=== PATIENT | female | born 1950 | race Caucasian/White ===

== ENCOUNTER 2018-05-13 06:15 | Day surgery (SDC) | payer MEDICARE, SELFPAY ==
[2018-05-13 06:42] VITALS: BP 122/63; PULSE 70; RESP 14; TEMP 36.1; O2SAT 97; BMI 31.1
[2018-05-13 08:02] VITALS: BP 122/63; BP 92/54; PULSE 68; RESP 16; TEMP 36.3; O2SAT 97
--- NOTE | 2018-05-13 08:03 | OP.ENDO_ITS ---
Patient Name: Michael Hollingsworth Procedure Date: 05/13/2018 7:34 AM Date of : 1950 Age: 67 Procedure: Colonoscopy Indications: High risk colon cancer surveillance: Personal history of colonic polyps Providers: Herve Calixto MD Medicines: See the Anesthesia note for documentation of the administered medications Patient Profile: Last Colonoscopy: 3 years ago. Complications: No immediate complications. Procedure: Pre-Anesthesia Assessment: - Prior to the procedure, a History and Physical was performed, and patient medications and allergies were reviewed. The patient's tolerance of previous anesthesia was also reviewed. The risks and benefits of the procedure and the sedation options and risks were discussed with the patient. All questions were answered, and informed consent was obtained. Prior Anticoagulants: The patient has taken no previous anticoagulant or antiplatelet agents. ASA Grade Assessment: II - A patient with mild systemic disease. After reviewing the risks and benefits, the patient was deemed in satisfactory condition to undergo the procedure. After I obtained informed consent, the scope was passed under direct vision. Throughout the procedure, the patient's blood pressure, pulse, and oxygen saturations were monitored continuously. The adult colonoscope was introduced through the anus and advanced to the cecum, identified by appendiceal orifice and ileocecal valve. The colonoscopy was performed without difficulty. The patient tolerated the procedure well. The quality of the bowel preparation was good. Scope In: 7:45:44 AM Scope Withdrawal Time 0 hours 6 minutes 30 seconds Scope Out: 7:59:14 AM Total Procedure Duration Time 0 hours 13 minutes 30 seconds Findings: The colon (entire examined portion) appeared normal. Non-bleeding internal hemorrhoids were found during retroflexion. The hemorrhoids were mild and Grade I (internal hemorrhoids that do not prolapse). The exam was otherwise without abnormality. Impression: - The entire examined colon is normal. - Non-bleeding internal hemorrhoids. - The examination was otherwise normal. - No specimens collected. Recommendation: - Discharge patient to home. - Resume previous diet. - Continue present medications. - Repeat colonoscopy in 10 days for screening purposes. - Return to primary care physician PRN. Procedure Code(s): --- Professional --- G0105, Colorectal cancer screening; colonoscopy on individual at high risk Diagnosis Code(s): --- Professional --- Z86.010, Personal history of colonic polyps K64.0, First degree hemorrhoids CPT copyright 2017 [employer] [place] [employer]. All rights reserved. The codes documented in this report are preliminary and upon [employer] review may be revised to meet current compliance requirements. MD Herve Maria MD 05/13/2018 8:02:49 AM This report has been signed electronically. Number of Addenda: 0 Note Initiated On: 05/13/2018 7:34 AM
[2018-05-13 08:05] VITALS: BP 122/63; BP 90/58; PULSE 65; RESP 16; O2SAT 97
[2018-05-13 08:10] VITALS: BP 122/63; BP 94/55; PULSE 65; RESP 16; O2SAT 97
[2018-05-13 08:15] VITALS: BP 105/69; BP 122/63; PULSE 75; RESP 16; TEMP 36.3; O2SAT 100
[2018-05-13 08:44] VITALS: BP 122/63
== END 2018-05-13 08:44 | disposition home or self-care (01) ==
LOC: EN 06:16 → AC 06:18
PROVIDERS: Family Provider Nurse Practitioner Adult Health; PCP Nurse Practitioner Adult Health; Referring Provider Surgery; Visit Provider Surgery
PROC: 0DJD8ZZ Inspection of Lower Intestinal Tract, Via Natural or Artificial Opening Endoscopic (ICD-10-PCS; CPT 45378; principal; 2018-05-13 07:25)
DX: Z86.010 Personal history of colon polyps (principal); K64.0 First degree hemorrhoids; E06.9 Thyroiditis, unspecified; F32.9 Major depressive disorder, single episode, unspecified; F41.9 Anxiety disorder, unspecified; Z87.891 Personal history of nicotine dependence
CPT/HCPCS: G0105; J7120; J1610

== ENCOUNTER → 2018-07-27 07:37 | Outpatient (CLI) | payer MEDICARE, SELFPAY ==
[2018-07-22 13:40] VITALS: BMI 31.1
--- NOTE | 2018-07-27 07:39 | CT_ITS ---
STUDY: CT ABDOMEN AND PELVIS WITH CONTRAST REASON FOR EXAM: Female, 67 years old. Without tearing-like feelings 4 weeks ago in the right side. History of appendectomy. RADIATION DOSAGE (If Supplied By Facility): CTDIvol = ( 14.34 ) mGy, DLP = ( 900.46 ) mGycm TECHNIQUE: Transaxial images were obtained from the dome of the diaphragm to the symphysis pubis with oral contrast. 100 ml of Isovue 300 contrast was administered. Sagittal and coronal images were reconstructed. Individualized dose optimization techniques were used for this CT. COMPARISON: None. FINDINGS: The visualized lung bases are unremarkable. The visualized portions of the heart are within normal limits. Normal liver. Normal gallbladder and extrahepatic biliary system. Normal spleen. Normal pancreas. Normal bilateral adrenal glands. Normal right kidney. Ages exophytic cyst off the upper pole. Otherwise normal left kidney. Normal bilateral ureters. Normal visualized stomach. Normal small intestine. Normal colon. There is non-visualization of the appendix. Normal abdominal aorta. Normal inferior vena cava. Normal retroperitoneum. Normal urinary bladder. The uterus and ovaries. There is no pelvic lymphadenopathy. No free air or free fluid is seen within the peritoneal cavity. Normal abdominal wall. There are diffuse degenerative changes of the visualized lumbar spine. CT/Abdomen/Pelvis WITH Contrast IMPRESSION: 1. No evidence of acute intra-abdominal or pelvic abnormality. 2. Left renal cyst. 3. Degenerative changes of the lumbar spine. Electronically Signed: Gray Thapa DO at 22:37 EST Tel [phone], Service support ,
[2018-07-27 07:55] LABS: CREATININE FINGERSTICK 0.9 mg/dL (0.55-1.02); EGFR FINGERSTICK > 60.0000 mL/min (>60)
== END ==
PROVIDERS: Family Provider Nurse Practitioner Adult Health; PCP Nurse Practitioner Adult Health; Referring Provider Physician Assistant; Visit Provider Physician Assistant
DX: R10.9 Unspecified abdominal pain (principal)
CPT/HCPCS: 74177; Q9967

== ENCOUNTER → 2019-02-10 08:06 | Outpatient (CLI) | payer MEDICARE, SELFPAY ==
[2019-02-04 17:31] VITALS: BMI 29.7
--- NOTE | 2019-02-10 08:18 | BD_ITS ---
STUDY: DUAL ENERGY X-RAY ABSORPTIOMETRY / DXA REASON FOR EXAM: Female, 68 years old. The patient is postmenopausal. No loss of height. TECHNIQUE: Bone Mineral Density (BMD) measurements of lumbar spine and bilateral hips were obtained. COMPARISON: None. FINDINGS: Lumbar Spine (L1-L4): g/cm2 (1.062) / T-score (-0.9) / Z-score (0.7) Findings are suggestive of normal bone density with a low fracture risk. Left Femur Total: g/cm2 (0.990) / T-score (-0.1) / Z-score (1.1) Left Femoral Neck: g/cm2 (1.054) / T-score (0.1) / Z-score (1.6) Right Femur Total: g/cm2 (0.975) / T-score (-0.3) / Z-score (1.0) Right Femoral Neck: g/cm2 (1.165) / T-score (0.9) / Z-score (2.4) BD/Dexa Bone Density Study IMPRESSION: The patient is considered normal as outlined below according to World Chris Organization (WHO) criteria with a low fracture risk. Reference Information: The T-score is the number of standard deviations above or below the standard which is normal for young adults at their peak bone mineral density. The World Health Organization (WHO) interprets the T-scores as follows: Above -1 Normal bone density Between -1 and -2.5 Osteopenia Equal to / or below -2.5 Osteoporosis As a practical clinical guideline, osteopenia may be graded as follows: Mild -1 through -1.5 Moderate -1.6 through -2.0 Severe -2.1 through -2.4 The Z-score is the number of standard deviations above or below age-matched controls. A Z-score of less than -1.5 would be considered abnormal. References: 1. NIH Osteoporosis and Related Bone Diseases http://www.osteo.org 2. International Society for Clinical Densitometry http://www.iscd.org 3. National Osteoporosis Foundation http://www.nof.org Electronically Signed: Jose Davidson, at 15:55 EDT , Service support ,
--- NOTE | 2019-02-10 08:40 | RAD_ITS ---
STUDY: X-RAY CHEST REASON FOR EXAM: Female, 68 years old. Cough TECHNIQUE: Single AP portable view of the chest. COMPARISON: 02/19/2016 FINDINGS: The lungs are clear and expanded. There is no demonstrated pleural abnormality. Normal size heart. Normal mediastinum and ariana. Normal visualized pulmonary arteries. Normal visualized aortic arch and descending thoracic aorta. Mild S-shaped scoliosis of the thoracolumbar spine. Normal visualized ribs, clavicles, and shoulders. There is no demonstrated abnormality of the visualized soft tissue structures of the upper abdomen. RAD/Chest 1 View IMPRESSION: Normal x-ray examination of the chest. Electronically Signed: Kavin Varma MD at 8:58 EDT Tel , Service support ,
== END ==
PROVIDERS: Family Provider Internal Medicine; PCP Internal Medicine; Referring Provider Internal Medicine; Visit Provider Internal Medicine
DX: Z78.0 Asymptomatic menopausal state (principal); R05 Cough
CPT/HCPCS: 71045; 77080

== ENCOUNTER → 2019-08-24 16:11 | Outpatient (CLI) | payer MEDICARE, SELFPAY ==
[2019-08-05 17:08] VITALS: BMI 31.1
[2019-08-24 18:08] LABS: Absolute Lymphocyte Count 2.41 X10^3/uL (0.83-4.51); Absolute Neutrophil Count 4.8 X10^3/uL (2.0-7.7); Basophil# 0.04 X10^3/uL; Basophil% 0.5 % (0-1); Eosinophil# 0.16 X10^3/uL; Hematocrit 42.7 % (37-47); Lymphocyte # 2.41 X10^3/ul (4.0); Lymphocyte % 30.5 % (19-41); Mean Corp Hgb Conc 32.8 g/dL (32-36); Mean Corpuscular Volume 94.5 fL (81-99); Mean Platelet Vol. 8.9 fl (6.2-12.0); Monocyte% 6.3 % (0-10); NRBC Flagged by Analyzer 0 % (0-5); Neutrophil # 4.77 X10^3/uL (2.7-7.7); Neutrophil % 60.4 % (47-70); Platelet Count 292 K/mm3 (150-450); RBC Distribution Width CV 12.7 % (11.6-14.6); RBC Distribution Width SD 43.9 fl (35.1-43.9); Red Blood Count 4.52 M/mm3 (4.2-5.4); White Blood Count 7.9 K/mm3 (4.4-11.0)
[2019-08-24 18:43] LABS: Vitamin B12 1946 pg/mL (211-911)
[2019-08-24 18:53] LABS: ALB/GLOB Ratio 1.3 RATIO (0.9-2.4); AST(SGOT) 15 U/L (15-37); Alanine Aminotransfer ALT/SGPT 26 U/L (13-56); Albumin, Serum 4.3 g/dL (3.2-5.0); Alkaline Phosphatase 75 U/L (45-117); Anion Gap 5 (5-15); BUN 16 mg/dL (7-18); BUN/Creat Ratio 15.8 RATIO (10-20); Calcium,Total 9.9 mg/dL (8.5-10.1); Chloride 103 mmol/L (98-107); Creatinine, Serum 1.01 mg/dL (0.55-1.02); EST Glomerular Filtration Rate 58 mL/min (>60); Est Glom Filt Rate - Afr Amer 70 mL/min (>60); Globulin 3.2 g/dL (2.2-4.2); Glucose 95 mg/dL (74-106); Potassium 3.8 mmol/L (3.5-5.1); Protein, Total 7.5 g/dL (6.4-8.2); Sodium Level 139 mmol/L (136-145); T4 Free Direct 1.04 ng/dL (0.76-1.46); Thyroid Stim Hormone (TSH) 2.11 uIU/mL (0.358-3.74)
== END ==
PROVIDERS: PCP Internal Medicine; Referring Provider Internal Medicine; Visit Provider Internal Medicine
DX: R05 Cough (principal); F32.9 Major depressive disorder, single episode, unspecified; F41.9 Anxiety disorder, unspecified
CPT/HCPCS: 36415; 80053; 82607; 84439; 84443; 85025

== ENCOUNTER → 2019-11-10 13:21 | Outpatient (CLI) | payer MEDICARE, SELFPAY ==
[2019-09-06 15:38] VITALS: BMI 31.1
[2019-11-10 15:45] LABS: Anion Gap 5 (5-15); BUN 12 mg/dL (7-18); BUN/Creat Ratio 12.9 RATIO (10-20); Calcium,Total 9.5 mg/dL (8.5-10.1); Chloride 102 mmol/L (98-107); Creatinine, Serum 0.93 mg/dL (0.55-1.02); EST Glomerular Filtration Rate 64 mL/min (>60); Est Glom Filt Rate - Afr Amer 78 mL/min (>60); Glucose 101 mg/dL (74-106); Potassium 3.8 mmol/L (3.5-5.1); Sodium Level 137 mmol/L (136-145)
== END ==
PROVIDERS: PCP Internal Medicine; Referring Provider Internal Medicine; Visit Provider Internal Medicine
DX: S37.009A Unspecified injury of unspecified kidney, initial encounter (principal)
CPT/HCPCS: 36415; 80048

== ENCOUNTER → 2020-03-28 06:57 | Outpatient (CLI) | payer MEDICARE, SELFPAY ==
[2020-03-02 13:54] VITALS: BMI 31.1
--- NOTE | 2020-03-28 07:00 | BI_ITS ---
MAMMOGRAPHY - BILATERAL SCREENING REASON FOR EXAM: Female, 69 years old. Routine annual screening examination. PERTINENT HISTORY: Non-contributory. TECHNIQUE: Digital bilateral breast arsen (3D mammographic acquisition) in the CC and MLO projections. 2-D mediolateral oblique (MLO) and craniocaudad (CC) views of both breasts were obtained. CAD: Full Field Digital Mammography with Computer Added Detection was performed. COMPARISON: Comparison is made with prior outside examination dated 05/15/2018. FINDINGS: Breast Composition: There are scattered areas of fibroglandular density. There are no dominant masses or suspicious calcifications. There is a 8 mm well-defined nodule in the upper lateral portion of the left breast. This may represent a small lymph node. Correlation with ultrasound is recommended. No other significant abnormalities are identified. BI/SCREEN MAMM (CAD) W/ARSEN BILAT IMPRESSION: 8 mm well-defined nodule in the upper lateral portion of the left breast. Correlation with ultrasound is recommended. ASSESSMENT CATEGORY: BIRADS Category 0: Incomplete. Need additional imaging evaluation. A letter regarding these results will be sent to the patient by the facility within 30 days. Approximately 10% of breast cancers are not detected by mammography. A normal mammogram should not delay biopsy of a clinically suspicious abnormality. [id number] Electronically Signed: Jose Davidson, at 12:48 EDT , Service support ,
== END ==
PROVIDERS: PCP Internal Medicine; Referring Provider Internal Medicine; Visit Provider Internal Medicine
DX: Z12.31 Encounter for screening mammogram for malignant neoplasm of breast (principal); N63.20 Unspecified lump in the left breast, unspecified quadrant
CPT/HCPCS: 77063; 77067

== ENCOUNTER → 2020-04-03 13:54 | Outpatient (CLI) | payer MEDICARE, SELFPAY ==
[2020-03-02 13:54] VITALS: BMI 31.1
--- NOTE | 2020-04-03 13:55 | US_ITS ---
STUDY: ULTRASOUND BREAST - LEFT REASON FOR EXAM: Female, 69 years old. Abnormal screening mammogram. TECHNIQUE: Axial and longitudinal images of the LEFT breast were performed with a high resolution ultrasound transducer. # OF IMAGES: 11 COMPARISON: Comparison is made with prior mammogram dated 03/28/2020. FINDINGS: LEFT Breast: There is a 6 mm x 6 mm x 3 mm predominantly cystic nodule with a focal rounded solid component within it. A biopsy is recommended for further evaluation. US/Breast Limited Unilateral IMPRESSION: 6 mm x 6 mm x 3 mm predominantly cystic nodule at the 1 o''clock position of the breast of 4 cm from the nipple. A focal rounded soft tissue density seen along its dependent portion. Biopsy is recommended. ASSESSMENT CATEGORY: BIRADS Category 4: Suspicious - Biopsy Should Be Considered. A letter regarding these results will be sent to the patient by the facility within 30 days. Electronically Signed: Jose Davidson, at 14:55 EDT , Service support ,
== END ==
PROVIDERS: PCP Internal Medicine; Referring Provider Nurse Practitioner Family; Visit Provider Nurse Practitioner Family
DX: N63.21 Unspecified lump in the left breast, upper outer quadrant (principal)
CPT/HCPCS: 76642

== ENCOUNTER → 2020-04-18 12:30 | Outpatient (CLI) | payer MEDICARE, SELFPAY ==
[2020-04-12 08:06] VITALS: BMI 31.1
--- NOTE | 2020-04-18 | BRBX_PTH ---
PATIENT: ROBI DIAZ LOC: OPUS U#:[id number] AGE/SX: 74/F ROOM: RE04/18/[address]: Dr. Herve Calixto MD : 1950 BED: DIS: SPEC #: [id number] RECD: 04/18/20 13:45 STATUS: SHANKAR REMando #: [id number] SOLEDAD: 04/18/20 00:[address]: Herve Calixto DEPT: SURGICAL PATHOLOGY RECD BY: More Long ENTERED: 04/18/20 13:52 SP TYPE: BREAST BX OTHR DR: Dr. Lily Dumont MD Tissues: Left breast, NOS Procedures: Surgery Specimen Level IV HEADER OPERATION: Ultrasound-guided left breast biopsy PRE-OP DIAGNOSIS: Left breast TISSUE SUBMITTED: Left breast MICROSCOPIC DIAGNOSIS Left breast, ultrasound-guided needle core biopsy: Nonproliferative fibrocystic change. No evidence of malignancy. AM:kevin 04/19/20 MICROSCOPIC DESCRIPTION Slides are reviewed. GROSS DESCRIPTION Received in fixative is one container labeled with the patient's name and designated left breast. The specimen consists of multiple irregular fragments of light ho-yellow soft tissue that in aggregate measure 1 x 0.8 x 0.1 cm. The specimen is totally submitted in one cassette. / AM:kevin 04/18/20 TC:5 CPT: 67666
--- NOTE | 2020-04-18 12:32 | US_ITS ---
ULTRASOUND GUIDED CORE BIOPSY REASON FOR EXAM: Female, 69 years old. ABN LEFT MAMM/ US PERTINENT HISTORY: ABN LEFT MAMM/ US COMPARISON: None. TECHNIQUE: Procedure performed by Dr. Calixto US/US Breast Biopsy 1st Lesion IMPRESSION: Ultrasound guided core biopsy of a mass in the LEFT breast at 1 o''clock position 4 cm from the nipple without complication. An addendum to this report will be rendered with appropriate recommendations when the pathology report is finalized. Electronically Signed: Araceli Segovia, at 14:28 EDT Tel , Service support ,
--- NOTE | 2020-04-18 13:32 | PCM.OPRPT ---
Problem List (1) Abnormal mammogram of left breast Status: Acute Report of Operation Date of Procedure: 04/18/20 Pre-Operative Diagnosis: Abnormal mammogram the left breast Post-Operative Diagnosis: Same Surgery/Procedure Performed:: Ultrasound-guided handheld mammotome breast biopsy to the left breast Type of Anesthesia:: Local Description of Procedure: Patient was brought into the ultrasound unit. Ultrasound of the left breast at the 12 o'clock position revealed the lesion in question. I prepped the skin with chlorhexidine. I injected 1% lidocaine plain. Under ultrasound guidance I directed local posterior to the lesion. A skin charlene was made. Under ultrasound guidance I guided the needle posterior to the lesion. Under ultrasound guidance numerous biopsies were obtained. I obliterated the lesion completely. Under ultrasound guidance a small titanium clip was placed. Sterile dressings were applied. The patient had postoperative mammogram films obtained. - Admit VTE Documentation VTE Present on Admission: No VTE Mechan Device Prophylaxis: None VTE Pharm Prophylaxis ordered?: No Reason prophylaxis not ordered:: Treatment Not Indicated [id number]: [id number] Bx breast 1st lesion us imag
--- NOTE | 2020-04-18 13:47 | BI_ITS ---
MAMMOGRAPHY - UNILATERAL DIAGNOSTIC: LEFT BREAST REASON FOR EXAM: Female, 69 years old. POST BX CLIP PLACEMENT IMAGES ON THE LEFT BREAST PERTINENT HISTORY: Ultrasound biopsy TECHNIQUE: Digital unilateral breast micki (3D mammographic acquisition) in the CC and MLO projections. 2-D mediolateral oblique (MLO) and craniocaudad (CC) views of both breasts were obtained. CAD: Full Field Digital Mammography with Computer Added Detection was performed. COMPARISON: None. FINDINGS: Breast Composition: There are scattered areas of fibroglandular density. There are no dominant masses or suspicious calcifications. A titanium clip is seen at the biopsy site. No other significant abnormalities are identified. BI/DIAG MAMM W/CAD, UNILAT IMPRESSION: Successful ultrasound guided of a mass in the left breast. ASSESSMENT CATEGORY: BIRADS Category 4: Suspicious - Biopsy Should Be Considered. A letter regarding these results will be sent to the patient by the facility within 30 days. Approximately 10% of breast cancers are not detected by mammography. A normal mammogram should not delay biopsy of a clinically suspicious abnormality. Electronically Signed: Araceli Segovia, at 15:28 EDT Tel , Service support ,
== END ==
PROVIDERS: PCP Internal Medicine; Referring Provider Surgery; Visit Provider Surgery
DX: R92.8 Other abnormal and inconclusive findings on diagnostic imaging of breast (principal)
CPT/HCPCS: 19083; 77065; 88305

== ENCOUNTER → 2020-09-15 11:24 | Outpatient (CLI) | payer MEDICARE, SELFPAY ==
[2020-09-15 10:42] VITALS: BMI 26.5
[2020-09-15 12:15] LABS: Absolute Lymphocyte Count 1.72 X10^3/uL (0.83-4.51); Absolute Neutrophil Count 4.4 X10^3/uL (2.0-7.7); Basophil# 0.04 X10^3/uL; Basophil% 0.6 % (0-1); Eosinophil# 0.29 X10^3/uL; Eosinophils% 4.3 % (0-5); Hematocrit 46.1 % (37-47); Hemoglobin 14.3 g/dL (12.0-15.0); Lymphocyte # 1.72 X10^3/ul (4.0); Lymphocyte % 25.3 % (19-41); Mean Corpuscular Hgb 30.3 pg (27.0-32.0); Mean Corpuscular Volume 97.7 fL (81-99); Mean Platelet Vol. 8.6 fl (6.2-12.0); Monocyte# 0.37 X10^3/uL; Monocyte% 5.4 % (0-10); NRBC Flagged by Analyzer 0 % (0-5); Neutrophil # 4.37 X10^3/uL (2.7-7.7); Neutrophil % 64.1 % (47-70); Platelet Count 293 K/mm3 (150-450); RBC Distribution Width CV 12.6 % (11.6-14.6); RBC Distribution Width SD 45.3 fl (35.1-43.9); Red Blood Count 4.72 M/mm3 (4.2-5.4); White Blood Count 6.8 K/mm3 (4.4-11.0)
[2020-09-15 13:20] LABS: Vitamin B12 740 pg/mL (211-911)
[2020-09-15 13:27] LABS: ALB/GLOB Ratio 1.2 RATIO (0.9-2.4); AST(SGOT) 11 U/L (15-37); Alanine Aminotransfer ALT/SGPT 20 U/L (13-56); Albumin, Serum 3.9 g/dL (3.2-5.0); Alkaline Phosphatase 81 U/L (45-117); Anion Gap 2 (5-15); BUN 15 mg/dL (7-18); BUN/Creat Ratio 14.9 RATIO (10-20); Calcium,Total 9.5 mg/dL (8.5-10.1); Chloride 100 mmol/L (98-107); Creatinine, Serum 1.01 mg/dL (0.55-1.02); EST Glomerular Filtration Rate 58 mL/min (>60); Est Glom Filt Rate - Afr Amer 70 mL/min (>60); Globulin 3.3 g/dL (2.2-4.2); Glucose 102 mg/dL (74-106); Potassium 4.7 mmol/L (3.5-5.1); Protein, Total 7.2 g/dL (6.4-8.2); Sodium Level 137 mmol/L (136-145)
== END ==
PROVIDERS: PCP Internal Medicine; Referring Provider Internal Medicine; Visit Provider Internal Medicine
DX: E03.9 Hypothyroidism, unspecified (principal); K21.9 Gastro-esophageal reflux disease without esophagitis; F41.8 Other specified anxiety disorders
CPT/HCPCS: 36415; 80053; 82607; 84443; 85025

== ENCOUNTER → 2020-09-28 13:08 | Outpatient (CLI) | payer MEDICARE, SELFPAY ==
[2020-09-28 10:45] VITALS: BMI 27.1
== END ==
PROVIDERS: PCP Internal Medicine; Referring Provider Nurse Practitioner Women's Health; Visit Provider Nurse Practitioner Women's Health
DX: N89.8 Other specified noninflammatory disorders of vagina (principal)
CPT/HCPCS: 87070; 87205

== ENCOUNTER → 2021-03-14 16:56 | Outpatient (CLI) | payer MEDICARE, SELFPAY ==
--- NOTE | 2021-03-14 16:58 | RAD_ITS ---
STUDY: X-RAY - LEFT FOOT CLINICAL: Female, 70 years old. see below TECHNIQUE: 3 view(s) of the foot. COMPARISON: None. FINDINGS: Normal talus, calcaneus, and tarsal bones. Normal visualized subtalar, talonavicular, calcaneocuboid, tarsal and tarsometatarsal articulations. Normal metatarsi. There is degenerative arthrosis of the metatarsophalangeal joint of the hallux . Normal tibial and fibular sesamoid bones. Normal interphalangeal joint of the great toe. Normal phalanges of the great toe. Normal second through fifth metatarsophalangeal joints. Normal interphalangeal joints and phalanges of the lesser toes. The soft tissue structures are unremarkable. RAD/Foot min 3 Views IMPRESSION: Mild first metatarsophalangeal joint arthrosis. Electronically Signed: Kavin Varma MD at 15:27 EDT Tel , Service support ,
--- NOTE | 2021-03-14 16:58 | RAD_ITS ---
STUDY: X-RAY LEFT FOOT, 1 TOE REASON FOR EXAM: Female, 70 years old. see below TECHNIQUE: 3 view(s) of the toe were obtained. COMPARISON: None. FINDINGS: Normal visualized metatarsus. There is arthrosis of the metatarsophalangeal (M.T.P.) joint. Normal interphalangeal joints. Normal phalanges and interphalangeal joints. The soft tissue structures are unremarkable. RAD/Toe(s) Min 2 Views IMPRESSION: Mild first metatarsophalangeal joint arthrosis. Electronically Signed: Kavin Varma MD at 15:28 EDT Tel , Service support ,
== END ==
PROVIDERS: PCP Internal Medicine; Referring Provider Nurse Practitioner Family; Visit Provider Nurse Practitioner Family
DX: S99.922A Unspecified injury of left foot, initial encounter (principal)
CPT/HCPCS: 73630; 73660

== ENCOUNTER 2021-09-28 14:52 | Outpatient (CLI) | payer MEDICARE, SELFPAY ==
[2021-09-28 16:32] LABS: Absolute Lymphocyte Count 2.12 X10^3/uL (0.83-4.51); Absolute Neutrophil Count 3.5 X10^3/uL (2.0-7.7); Basophil# 0.04 X10^3/uL; Basophil% 0.6 % (0-1); Eosinophil# 0.24 X10^3/uL; Eosinophils% 3.8 % (0-5); Hematocrit 40.8 % (37-47); Hemoglobin 13.8 g/dL (12.0-15.0); Lymphocyte # 2.12 X10^3/ul (0.83-4.51); Lymphocyte % 33.3 % (19-41); Mean Corp Hgb Conc 33.8 g/dL (32-36); Mean Corpuscular Hgb 32.7 pg (27.0-32.0); Mean Corpuscular Volume 96.7 fL (81-99); Monocyte# 0.48 X10^3/uL; Monocyte% 7.5 % (0-10); NRBC Flagged by Analyzer 0 % (0-5); Neutrophil # 3.46 X10^3/uL (2.7-7.7); Neutrophil % 54.5 % (47-70); Platelet Count 281 K/mm3 (150-450); RBC Distribution Width CV 12.7 % (11.6-14.6); RBC Distribution Width SD 45.7 fl (35.1-43.9); Red Blood Count 4.22 M/mm3 (4.2-5.4); White Blood Count 6.4 K/mm3 (4.4-11.0)
[2021-09-28 16:52] LABS: ALB/GLOB Ratio 1.2 RATIO (0.9-2.4); AST(SGOT) 18 U/L (15-37); Alanine Aminotransfer ALT/SGPT 23 U/L (13-56); Alkaline Phosphatase 66 U/L (45-117); Anion Gap 4 (5-15); BUN 19 mg/dL (7-18); BUN/Creat Ratio 21.3 RATIO (10-20); Calcium,Total 8.9 mg/dL (8.5-10.1); Chloride 103 mmol/L (98-107); Cholesterol 189 mg/dL (200); Creatinine, Serum 0.89 mg/dL (0.55-1.02); EST Glomerular Filtration Rate 67 mL/min (>60); Est Glom Filt Rate - Afr Amer 81 mL/min (>60); Globulin 3.2 g/dL (2.2-4.2); Glucose 88 mg/dL (74-106); High Density Lipoprotein 77 mg/dL; Protein, Total 7.2 g/dL (6.4-8.2); Sodium Level 138 mmol/L (136-145); Thyroid Stim Hormone (TSH) 2.67 uIU/mL (0.358-3.74); Triglycerides 78 mg/dL; Very Low Density Lipoprotein 16 mg/dL (5-40)
== END 2021-09-28 23:59 | disposition home or self-care (01) ==
LOC: BIMLAB 14:52
PROVIDERS: PCP Internal Medicine; Referring Provider Nurse Practitioner Family; Visit Provider Nurse Practitioner Family
DX: K21.9 Gastro-esophageal reflux disease without esophagitis (principal); F32.A Depression, unspecified; F41.9 Anxiety disorder, unspecified; E78.5 Hyperlipidemia, unspecified; Z87.898 Personal history of other specified conditions
CPT/HCPCS: 36415; 80053; 80061; 84443; 85025

== ENCOUNTER → 2022-01-17 | Outpatient (CLI) | payer MEDICARE, SELFPAY ==
--- NOTE | 2022-01-17 10:46 | BI_ITS ---
MAMMOGRAPHY - BILATERAL SCREENING REASON FOR EXAM: Female, 71 years old. Routine annual screening examination. PERTINENT HISTORY: Non-contributory. TECHNIQUE: Digital bilateral breast arsen (3D mammographic acquisition) in the CC and MLO projections. 2-D mediolateral oblique (MLO) and craniocaudad (CC) views of both breasts were obtained. CAD: Full Field Digital Mammography with Computer Added Detection was performed. COMPARISON: Comparison is made with prior study dated 03/28/2020 and 04/18/2020 FINDINGS: Breast Composition: There are scattered areas of fibroglandular density. There are no dominant masses or suspicious calcifications. A tissue clip marker is seen in the anterior upper central portion of the left breast. No other significant abnormalities are identified. There has been no significant change since the prior study. BI/SCRN MAMM (CAD)W/ARSEN BILAT IMPRESSION: Stable bilateral screening mammogram. Yearly follow-up mammogram recommended. (A) ASSESSMENT CATEGORY: BIRADS Category 2: Benign. A letter regarding these results will be sent to the patient by the facility within 30 days. Approximately 10% of breast cancers are not detected by mammography. A normal mammogram should not delay biopsy of a clinically suspicious abnormality. [id number] Electronically Signed: Jose Davidson MD at 12:24 EDT ,
== END | disposition home or self-care (01) ==
LOC: OPBI 10:44
PROVIDERS: PCP Internal Medicine; Visit Provider Nurse Practitioner Family
DX: Z12.31 Encounter for screening mammogram for malignant neoplasm of breast (principal); Z87.898 Personal history of other specified conditions
CPT/HCPCS: 77063; 77067

== ENCOUNTER → 2022-02-12 | Outpatient (CLI) | payer MEDICARE, SELFPAY | END | disposition home or self-care (01) | PROVIDERS: PCP Internal Medicine; Visit Provider Nurse Practitioner Family | DX: U07.1 COVID-19 (principal) | CPT/HCPCS: 87635; U0003; U0005 ==

== ENCOUNTER → 2022-06-27 | Outpatient (CLI) | payer MEDICARE, SELFPAY ==
[2022-06-27 17:14] LABS: Erythrocyte Sedimentation Rate 9 mm/hr (0-30)
[2022-06-27 18:11] LABS: CRP < 2.90 mg/L (0.0-3.0)
[2022-06-29 21:02] LABS: CCP IgG Antibodies 0 units (0-19)
[2022-07-01 19:02] LABS: ANTINUCLEAR ANTIBODIES DIRECT Negative (Negative)
== END | disposition home or self-care (01) ==
LOC: BIMLAB 16:07
PROVIDERS: PCP Internal Medicine; Referring Provider Nurse Practitioner Family; Visit Provider Nurse Practitioner Family
DX: M25.50 Pain in unspecified joint (principal)
CPT/HCPCS: 36415; 85652; 86038; 86140; 86200; 86225; 86235; 86431

== ENCOUNTER → 2022-08-28 | Outpatient (CLI) | payer MEDICARE, SELFPAY ==
--- NOTE | 2022-08-28 09:54 | RAD_ITS ---
STUDY: X-RAY - PELVIS REASON FOR EXAM: Female, 71 years old. INFLAMMATORY POLYARTHROPATHY TECHNIQUE: One view of the pelvis was obtained. COMPARISON: None. FINDINGS: There is a non-specific bowel gas pattern. There are multiple calcified phleboliths. There is narrowing with cortical sclerosis and osteophyte formation of the sacroiliac joint consistent with degenerative osteoarthritic changes. Normal visualized bilateral superior and inferior pubic rami. There is narrowing with sclerosis of the pubic symphysis. Normal ischial tuberosities. Normal visualized right femoral head. Normal right acetabulum. Normal right hip joint. Normal visualized left femoral head. Normal left acetabulum. Normal left hip joint. RAD/Pelvis 1 or 2 Views IMPRESSION: Degenerative changes Electronically Signed: Jose Davidson MD at 10:50 EST ,
[2022-08-28 12:17] LABS: Absolute Lymphocyte Count 2.71 X10^3/uL (0.83-4.51); Absolute Neutrophil Count 3.1 X10^3/uL (2.0-7.7); Basophil# 0.04 X10^3/uL; Basophil% 0.6 % (0-1); Eosinophil# 0.23 X10^3/uL; Eosinophils% 3.4 % (0-5); Hematocrit 39.9 % (37-47); Hemoglobin 13.1 g/dL (12.0-15.0); Lymphocyte # 2.71 X10^3/ul (0.83-4.51); Lymphocyte % 40.6 % (19-41); Mean Corp Hgb Conc 32.8 g/dL (32-36); Mean Corpuscular Hgb 31.9 pg (27.0-32.0); Mean Corpuscular Volume 97.1 fL (81-99); Mean Platelet Vol. 8.8 fl (6.2-12.0); Monocyte# 0.54 X10^3/uL; Monocyte% 8.1 % (0-10); NRBC Flagged by Analyzer 0 % (0-5); Neutrophil # 3.14 X10^3/uL (2.7-7.7); Neutrophil % 47.2 % (47-70); Platelet Count 263 K/mm3 (150-450); RBC Distribution Width CV 13.3 % (11.6-14.6); RBC Distribution Width SD 47.8 fl (35.1-43.9); Red Blood Count 4.11 M/mm3 (4.2-5.4); White Blood Count 6.7 K/mm3 (4.4-11.0)
[2022-08-28 12:20] LABS: Erythrocyte Sedimentation Rate 9 mm/hr (0-30)
[2022-08-28 13:09] LABS: Hepatitis B Surface Antibody Non-Reactive; Hepatitis B Surface Antigen Non-Reactive (Nonreactive); Hepatitis C Antibody Non-Reactive (Nonreactive)
[2022-08-28 13:55] LABS: ALB/GLOB Ratio 1.2 RATIO (0.9-2.4); AST(SGOT) 15 U/L (15-37); Alanine Aminotransfer ALT/SGPT 22 U/L (13-56); Albumin, Serum 3.8 g/dL (3.2-5.0); Alkaline Phosphatase 58 U/L (45-117); Anion Gap 8 (5-15); BUN 22 mg/dL (7-18); CRP < 2.90 mg/L (0.0-3.0); Chloride 104 mmol/L (98-107); EST Glomerular Filtration Rate 58 mL/min (>60); Est Glom Filt Rate - Afr Amer 71 mL/min (>60); Globulin 3.2 g/dL (2.2-4.2); Glucose 110 mg/dL (74-106); Potassium 4.6 mmol/L (3.5-5.1); Rheumatoid Factor < 10.0 IU/mL (<15); Sodium Level 137 mmol/L (136-145)
[2022-08-30 18:47] LABS: ANTINUCLEAR ANTIBODIES DIRECT Negative (Negative)
[2022-08-30 18:50] LABS: CCP IgG Antibodies 4 units (0-19)
== END | disposition home or self-care (01) ==
LOC: MTLAB 09:52
PROVIDERS: PCP Nurse Practitioner Family; Referring Provider Internal Medicine Rheumatology; Visit Provider Internal Medicine Rheumatology
DX: M06.4 Inflammatory polyarthropathy (principal); M65.341 Trigger finger, right ring finger
CPT/HCPCS: 36415; 72170; 80053; 85025; 85652; 86038; 86140; 86200; 86431; 86706; 86803; 87340

== ENCOUNTER 2022-10-20 01:50 | Emergency (ER) | payer MEDICARE, SELFPAY ==
[2022-10-20 01:56] VITALS: BP 156/83; PULSE 75; RESP 16; TEMP 36.4; O2SAT 99; BMI 29.4
--- NOTE | 2022-10-20 02:29 | CT_ITS ---
STUDY: CTA CHEST REASON FOR EXAM: Female, 72 years old. chest/back/jaw pain, r/o dissection RADIATION DOSAGE (If Supplied By Facility): CTDIvol = ( 12.33 ) mGy, DLP = ( 338.90 ) mGycm TECHNIQUE: The examination was performed with the intravenous administration of IV 100mL Isovue-370. Post-processing of the angiographic images was performed, with multiplanar reformation and 3D reconstruction. Individualized dose optimization techniques were used for this CT. COMPARISON: July 27, 2018 CT abdomen and pelvis. FINDINGS: Left thyroid 3.0 cm nodule. Normal enhancement of the bilateral pulmonary arteries. There is no demonstrated pulmonary embolism. No main pulmonary arterial enlargement. Aortic atherosclerosis without ectasia or dissection. Normal heart and pericardium. No densely calcified coronary atherosclerosis. Subcentimeter bilateral hilar lymph nodes are present. Left aorticopulmonary window 1.8 cm short axis lymph node versus recess fluid. No endobronchial lesion. No airspace consolidation effusion or pneumothorax. Posterior left upper lobe calcified granuloma. Mild atelectasis within anterior left lower lobe. Normal osseous structures. Indeterminate medial exophytic left renal 2.4 cm lesion slightly increased in size from July 27, 2018 CT/CTA Chest W/WO Contrast IMPRESSION: No evidence of aortic dissection, pulmonary embolism, or acute airspace disease. Indeterminate medial exophytic left renal 2.4 cm lesion slightly increased in size from July 27, 2018. Recommend multiphasic contrast-enhanced CT or MRI to better characterize. Left thyroid 3 cm nodule. Ultrasound characterization recommended when clinically able. Aorticopulmonary window recess fluid versus large lymph node. No other adenopathy by size criteria. Consider 3 month follow-up CT. Electronically Signed: Guy Moy MD at 3:53 EDT ,
--- NOTE | 2022-10-20 02:30 | EDS_ITS ---
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 It lasted about an hour before going away on her way to the emergency department here. She states it may be there just barely now but for the most part it is gone. She denies any other associated symptoms. Never had this before. She states she is healthy and gets thousands of steps in every night at work, and never has chest discomfort. No history of heart problems. Usually blood pressure in the 120s, here initially 156/83. [facility] Medical History Abnormal mammogram of left breast Bilateral shoulder pain (~02/12/22) Carpal tunnel syndrome Depression with anxiety Injury of left foot Injury of left toe Pain, joint, multiple sites Right thyroid nodule Seasonal allergies Home Medications loratadine 10 mg tablet (Allergy Relief (loratadine)) 10 mg PO DAILY PRN allergy symptoms #90 tabs 11/10/20 [Rx Last Taken Unknown] omeprazole 40 mg capsule,delayed release 40 mg PO DAILY #90 caps 08/13/21 [Rx Last Taken Unknown] bupropion HCl 300 mg 24 hr tablet, extended release 300 mg PO QAM #90 tabs 09/28/21 [Rx Last Taken Unknown] epinephrine 0.1 mg/0.1 mL injection, auto-injector 0.1 mg (0.1 mL) IM ONCE PRN hypersensitivity reaction #2 ea 01/22/22 [Rx Last Taken Unknown] duloxetine 30 mg capsule,delayed release 30 mg PO BID #180 caps 02/27/22 [Rx Last Taken Unknown] meloxicam 7.5 mg tablet 7.5 mg PO DAILY PRN pain #30 tabs 06/27/22 [Rx Last Taken Unknown] diclofenac sodium 1 % topical gel (Voltaren Arthritis Pain) 4 g topical ONCE #100 grams 07/30/22 [Rx Last Taken Unknown] trazodone 100 mg tablet See Rx Instructions .Route .COMPLEX #90 tabs 10/15/22 [Rx Last Taken Unknown] Allergy/AdvReac Type Severity Reaction Status Date / Time bee venom protein (honey bee) Allergy Severe Anaphylaxis Verified 06/27/22 15:38 adhesive tape Allergy Mild redness to Verified 06/27/22 15:38 skin Family History Father Diabetes Heart disease CVA (cerebral vascular accident) Alcoholism Mother Diabetes Heart disease CVA (cerebral vascular accident) Myocardial infarction Grandmother Heart disease Brother Melanoma Skin cancer Sister Cancer PTSD (post-traumatic stress disorder) Surgical History History of carpal tunnel surgery History of left breast biopsy (~04/18/20) History of tonsillectomy and adenoidectomy History of tubal ligation history right thyroidectomy S/P appendectomy s/p tonsillectomy Social History household members: none current occupational status: retired history of recent travel: No Smoking Status: Former smoker alcohol intake: current alcohol intake frequency: 0-2 drinks per day Alcohol type: wine substance use type: does not use diet: low carbohydrate what type of physical activity do you participate in: walking seatbelt use: always do you feel safe at home: Yes additional social history: single ROS ROS ED Constitutional Constitutional ED: Denies chills or fever(s) Eyes Eyes: Denies change in vision or diplopia ENT ENT ED: Denies rhinorrhea or sore throat Cardiovascular Cardiovascular: Reports as per HPI, chest pain and radiating jaw, neck or arm pain; Denies palpitations Respiratory/Chest Respiratory/Chest: Denies cough or dyspnea Gastrointestinal Gastrointestinal: Denies abdominal pain, diarrhea, nausea or vomiting Genitourinary Genitourinary ED: Denies dysuria or hematuria Musculoskeletal Musculoskeletal: Reports back pain; Denies neck pain Integumentary Denies abscess or rash Neurologic Neurologic: Denies headache(s), paresthesias or weakness Psychiatric Psychiatric: Denies anxiety or suicidal thoughts EXAM Physical Exam Const Vital Signs: 10/20/22 01:56 10/20/22 01:58 10/20/22 02:32 Temperature 97.6 F L Temperature Source Temporal Pulse Rate 75 Respiratory Rate 16 Respiratory Effort Normal Non-Labored Blood Pressure 156/83 H Blood Pressure Mean 107 Pulse Ox 99 99 Oxygen Delivery Method Room Air Room Air 10/20/22 02:50 10/20/22 04:27 Temperature Temperature Source Pulse Rate 67 62 Respiratory Rate 16 18 Respiratory Effort Blood Pressure 127/72 H 131/86 H Blood Pressure Mean 90 101 Pulse Ox 99 99 Oxygen Delivery Method Room Air Room Air Positive well nourished and well developed General Appearance ED: well developed and NAD HEENT Reports moist mucous membranes normocephalic and atraumatic Eyes PERRL and EOMs intact bilaterally Neck full ROM and supple Resp normal respiratory effort and clear to auscultation bilaterally Cardio regular rate, regular rhythm and no murmurs Peripheral Pulses: pulses 2+ throughout GI non-tender, non-distended and no masses Auscultation: normoactive bowel sounds Palpation: soft Back/Spine no CVA tenderness General Back: other FROM Extremity normal to inspection, no calf tenderness and no pedal edema General Extremety ED: Negative for edema, pulses abnormal or tenderness General Extremity: Negative for edema or pulses abnormal Neuro oriented x3, CN's II-XII intact bilaterally and no sensory deficits noted Sensorium / Orientation: awake and alert Motor Exam: strength 5/5 throughout Skin no rashes or lesions noted and no wounds Heart Score History: Moderately Suspicious ECG: Normal Age: >/= 65 years Risk Factors: 1 or 2 Risk Factors (Former smoker) Troponin: </= Normal Limit Score: 4 MDM MDM MDM Narrative Medical decision making narrative: Labs, EKG, troponin obtained, these are all normal, I sent her for CTA of the chest in order to rule out dissection primarily given the radiation to her jaw and her back and her initial elevated blood pressure 156/83, although the symptoms certainly were not classic for this. That CT was negative for dissection, there were some incidental findings which I will send to her PCP for when she follows up. On reevaluation she is comfortable and asymptomatic even while lying down. We observed her and did a 2-hour repeat troponin, that also was negative for a delta of zero. She is relatively low risk for her age and stable for discharge home close outpatient follow-up. Esophageal spasm in the differential diagnosis here as well given the negative work-up. Lab Data Attestation: I reviewed the patient's lab results. Labs: Laboratory Results - last 24 hr 10/20/22 10/20/22 10/20/22 02:41 02:41 04:52 WBC 9.1 RBC 4.46 Hgb 14.2 Hct 44.1 MCV 98.9 MCH 31.8 MCHC 32.2 RDW Std Deviation 47.7 H RDW Coeff of Sherry 13.1 Plt Count 304 MPV 8.4 Immature Gran % (Auto) 0.200 Neut % (Auto) 53.0 Lymph % (Auto) 37.0 Frontier % (Auto) 6.7 Eos % (Auto) 2.3 Baso % (Auto) 0.8 Absolute Neuts (auto) 4.8 Absolute Lymphs (auto) 3.36 Nucleated RBC % 0 Sodium 138 Potassium 3.8 Chloride 104 Carbon Dioxide 28.0 Anion Gap 6 BUN 26 H Creatinine 0.96 Estim Creat Clear Calc 45.11 Est GFR (MDRD) Af Amer 74 Est GFR (MDRD) Non-Af 61 BUN/Creatinine Ratio 27.2 H Glucose 91 Calcium 9.6 Troponin I High Sens 4 4 Radiography CTA PE Study: No Evidence of PE Diagnostic Testing: Clinical Impression(s) from Imaging Studies Chest CTA 10/20/22 02:29 IMPRESSION: No evidence of aortic dissection, pulmonary embolism, or acute airspace disease. Indeterminate medial exophytic left renal 2.4 cm lesion slightly increased in size from July 27, 2018. Recommend multiphasic contrast-enhanced CT or MRI to better characterize. Left thyroid 3 cm nodule. Ultrasound characterization recommended when clinically able. Aorticopulmonary window recess fluid versus large lymph node. No other adenopathy by size criteria. Consider 3 month follow-up CT. Electronically Signed: Guy Moy MD at 3:53 EDT , My interpretation of the CT agrees with that of the radiologist. Rhythm Strip Rhythm Strip: Sinus Rhythm Rate: 70 Ectopy: None EKG Initial EKG: Attestation: I personally reviewed and interpreted this EKG as follows: Interpretation: Sinus Rhythm and No Acute Injury Pattern Comments: Normal EKG Discharge Plan Triage Chief Complaint: Chest Pain ED Provider: Joseluis Salazar Dx/Rx/DC Orders Clinical Impression: Chest pain, unspecified Instructions: ED Chest Pain, Uncertain Cause, ED Esophageal Spasm Prescriptions: No Action bupropion HCl 300 mg tablet extended release 24 hr 300 mg PO QAM Qty: 90 3RF meloxicam 7.5 mg tablet 7.5 mg PO DAILY PRN (Reason: pain) Qty: 30 1RF loratadine [Allergy Relief (loratadine)] 10 mg tablet 10 mg PO DAILY PRN (Reason: allergy symptoms) Qty: 90 3RF omeprazole 40 mg capsule,delayed release(DR/EC) 40 mg PO DAILY Qty: 90 1RF epinephrine 0.1 mg/0.1 mL auto-injector 0.1 mg IM ONCE PRN (Reason: hypersensitivity reaction) Qty: 2 1RF duloxetine 30 mg capsule,delayed release(DR/EC) 30 mg PO BID Qty: 180 3RF diclofenac sodium [Voltaren Arthritis Pain] 1 % gel 4 g topical ONCE Qty: 100 2RF Rx Instructions: apply to single knee, ankle, foot; for foot includes sole/toes/top of foot trazodone 100 mg tablet See Rx Instructions .ROUTE .COMPLEX Qty: 90 0RF Dose Instruction: TAKE 1 TABLET AT BEDTIME Rx Instructions: TAKE 1 TABLET AT BEDTIME Primary Care Provider: Adarsh Hester NP Referrals: Adarsh Hester NP, [employer] [Primary Care Provider] - 1-2 Weeks (Or sooner if you have recurrent episodes) Disposition Disposition: Home, Self Care
[2022-10-20 02:32] VITALS: O2SAT 99
[2022-10-20 02:50] VITALS: BP 127/72; PULSE 67; RESP 16; O2SAT 99
[2022-10-20 02:52] LABS: Absolute Lymphocyte Count 3.36 X10^3/uL (0.83-4.51); Absolute Neutrophil Count 4.8 X10^3/uL (2.0-7.7); Basophil# 0.07 X10^3/uL; Basophil% 0.8 % (0-1); Eosinophil# 0.21 X10^3/uL; Eosinophils% 2.3 % (0-5); Hematocrit 44.1 % (37-47); Hemoglobin 14.2 g/dL (12.0-15.0); Lymphocyte # 3.36 X10^3/ul (0.83-4.51); Mean Corp Hgb Conc 32.2 g/dL (32-36); Mean Corpuscular Hgb 31.8 pg (27.0-32.0); Mean Corpuscular Volume 98.9 fL (81-99); Mean Platelet Vol. 8.4 fl (6.2-12.0); Monocyte# 0.61 X10^3/uL; Monocyte% 6.7 % (0-10); NRBC Flagged by Analyzer 0 % (0-5); Platelet Count 304 K/mm3 (150-450); RBC Distribution Width CV 13.1 % (11.6-14.6); RBC Distribution Width SD 47.7 fl (35.1-43.9); Red Blood Count 4.46 M/mm3 (4.2-5.4); White Blood Count 9.1 K/mm3 (4.4-11.0)
[2022-10-20] MEDS: 0.9% Normal Saline 1,000 ML 150 ML IV (03:00)
[2022-10-20 03:50] LABS: Anion Gap 6 (5-15); BUN 26 mg/dL (7-18); BUN/Creat Ratio 27.2 RATIO (10-20); Calcium,Total 9.6 mg/dL (8.5-10.1); Chloride 104 mmol/L (98-107); Creatinine, Serum 0.96 mg/dL (0.55-1.02); EST Glomerular Filtration Rate 61 mL/min (>60); Est Glom Filt Rate - Afr Amer 74 mL/min (>60); Estimated Creatinine Clearance 45.11 ml/min; Glucose 91 mg/dL (74-106); Potassium 3.8 mmol/L (3.5-5.1); Sodium Level 138 mmol/L (136-145); Troponin-I HS (w/2H Reflex) 4 pg/mL (3.0-54.0)
[2022-10-20 04:27] VITALS: BP 131/86; PULSE 62; RESP 18; O2SAT 99
[2022-10-20 04:46] LABS: Reflex Troponin-HS? (from REC) Y
[2022-10-20 05:41] LABS: Troponin-I HS 4 pg/mL (3.0-54.0)
[2022-10-20 06:02] VITALS: BP 131/63; PULSE 61; RESP 18; O2SAT 100
== END 2022-10-20 06:05 | disposition home or self-care (01) ==
PROVIDERS: Emergency Provider Emergency Medicine; PCP Nurse Practitioner Family; Visit Provider Emergency Medicine
DX: R07.9 Chest pain, unspecified (principal); Z87.891 Personal history of nicotine dependence
CPT/HCPCS: 71275; 80048; 84484; 85025; 93005; 96360; 96361; 99284; J7030; Q9967; A4216

== ENCOUNTER → 2022-10-31 | Outpatient (CLI) | payer MEDICARE, SELFPAY ==
--- NOTE | 2022-10-31 16:56 | US_ITS ---
STUDY: THYROID ULTRASOUND REASON FOR EXAM: Female, 72 years old. Left thyroid nodule. TECHNIQUE: Ultrasound evaluation of the thyroid was performed with real-time and static askew-scale imaging. COMPARISON: CTA of the chest, October 20, 2022. FINDINGS: RIGHT LOBE: The right lobe of the thyroid gland is surgically absent LEFT LOBE: The left lobe of the thyroid gland measures 5.6 x 2.6 x 2.2 cm. There is a homogeneous echotexture. In the lower pole is a large mass measuring 3.5 x 2.6 x 2.3 cm. There demonstrates a thick isoechoic rim with a cystic center. There is no evidence of calcifications. There is peripheral in internal vascularity. Medially there is a 2.6 x 0.4 x 0.5 cm isoechoic nodule. In the upper pole there is a 0.9 x 0.8 x 0.7 cm hypoechoic nodule with large central calcification. ISTHMUS: The isthmus measures 0.2 cm. There are benign-appearing lymph nodes in the adjacent left neck. US/Thyroid IMPRESSION: 1. Status post right thyroidectomy. 2. Multiple nodules in the enlarged left thyroid. The largest nodule is considered benign and requires no follow-up. The small isoechoic nodule is considered mildly suspicious, TR 3 by TI-RADS categorization but requires no follow-up or FNA. The hypoechoic nodule with calcification is considered moderately suspicious, TR 4. No FNA or follow-up is required. Electronically Signed: Gray Thapa DO at 20:46 EDT ,
== END | disposition home or self-care (01) ==
LOC: US 16:55
PROVIDERS: PCP Nurse Practitioner Family; Referring Provider Nurse Practitioner Family; Visit Provider Nurse Practitioner Family
DX: E04.1 Nontoxic single thyroid nodule (principal)
CPT/HCPCS: 76536

== ENCOUNTER → 2022-11-14 | Outpatient (CLI) | payer MEDICARE, SELFPAY ==
--- NOTE | 2022-11-14 12:31 | MRI_ITS ---
STUDY: MRI ABDOMEN WITH AND WITHOUT CONTRAST REASON FOR EXAM: Female, 72 years old. LEFT RENAL LESION TECHNIQUE: Standardized fat and water weighted pulse sequences were obtained in all 3 orthogonal planes post contrast administration. IV 14cc clariscan was administered for the contrast portion of the examination. COMPARISON: CT 07/27/2018, CTA chest 10/20/2022 FINDINGS: Base of the chest is normal. Normal visualized liver. Normal gallbladder and extrahepatic biliary system. Normal spleen. Normal pancreas. Normal bilateral adrenal glands. Normal right kidney. 1.7 x 2.1 cm hyperintense T1 (intermediate to low T2) exophytic lesion off the medial superior left kidney (correlating to CT findings) does NOT demonstrate abnormal contrast enhancement. Small focal fat density lesion of the posterior left kidney measuring 9.7 mm is compatible with a small angiomyolipoma (no significant contrast enhancement). Tiny subcentimeter Bosniak I nonenhancing renal cysts are also identified. No suspicious or solid renal masses. Hollow viscus structures are unremarkable. Normal abdominal aorta. Normal inferior vena cava. Normal retroperitoneum. Normal abdominal wall. No bone marrow edema. MRI/MRI Abd WITH and W/O Contrast IMPRESSION: 1. Bosniak II left renal cyst (proteinaceous cyst), correlating to CT findings. ACR White Paper guidelines (Herts, et al. JACR 2018; 15(2):264-273) suggest no follow-up is necessary. 2. Subcentimeter left renal angiomyolipoma. Electronically Signed: David Neal (Brooks), at 21:58 EDT ,
== END | disposition home or self-care (01) ==
LOC: MRI 12:29
PROVIDERS: PCP Nurse Practitioner Family; Referring Provider Nurse Practitioner Family; Visit Provider Nurse Practitioner Family
DX: D17.71 Benign lipomatous neoplasm of kidney (principal)
CPT/HCPCS: 74183; A9575

== ENCOUNTER → 2022-11-19 | Outpatient (CLI) | payer MEDICARE, SELFPAY ==
[2022-11-19 15:33] LABS: Absolute Lymphocyte Count 1.89 X10^3/uL (0.83-4.51); Absolute Neutrophil Count 3.5 X10^3/uL (2.0-7.7); Basophil# 0.05 X10^3/uL; Basophil% 0.8 % (0-1); Eosinophil# 0.18 X10^3/uL; Eosinophils% 2.9 % (0-5); Hematocrit 42.9 % (37-47); Hemoglobin 13.6 g/dL (12.0-15.0); Lymphocyte # 1.89 X10^3/ul (0.83-4.51); Mean Corp Hgb Conc 31.7 g/dL (32-36); Mean Corpuscular Hgb 31.8 pg (27.0-32.0); Mean Corpuscular Volume 100.2 fL (81-99); Mean Platelet Vol. 9.3 fl (6.2-12.0); Monocyte# 0.67 X10^3/uL; Monocyte% 10.6 % (0-10); NRBC Flagged by Analyzer 0 % (0-5); Neutrophil # 3.51 X10^3/uL (2.7-7.7); Neutrophil % 55.5 % (47-70); Platelet Count 301 K/mm3 (150-450); RBC Distribution Width CV 13.1 % (11.6-14.6); RBC Distribution Width SD 47.8 fl (35.1-43.9); Red Blood Count 4.28 M/mm3 (4.2-5.4); White Blood Count 6.3 K/mm3 (4.4-11.0)
[2022-11-19 15:49] LABS: ALB/GLOB Ratio 1.2 RATIO (0.9-2.4); AST(SGOT) 17 U/L (15-37); Alanine Aminotransfer ALT/SGPT 23 U/L (13-56); Albumin, Serum 3.8 g/dL (3.2-5.0); Alkaline Phosphatase 66 U/L (45-117); Anion Gap 7 (5-15); BUN 21 mg/dL (7-18); BUN/Creat Ratio 20.6 RATIO (10-20); Calcium,Total 9.6 mg/dL (8.5-10.1); Chloride 103 mmol/L (98-107); Creatinine, Serum 1.02 mg/dL (0.55-1.02); EST Glomerular Filtration Rate 57 mL/min (>60); Est Glom Filt Rate - Afr Amer 69 mL/min (>60); Globulin 3.2 g/dL (2.2-4.2); Glucose 68 mg/dL (74-106); Potassium 4.1 mmol/L (3.5-5.1); Sodium Level 140 mmol/L (136-145)
== END | disposition home or self-care (01) ==
LOC: MTLAB 11:40
PROVIDERS: PCP Nurse Practitioner Family; Referring Provider Internal Medicine Rheumatology; Visit Provider Internal Medicine Rheumatology
DX: M06.4 Inflammatory polyarthropathy (principal); Z79.899 Other long term (current) drug therapy
CPT/HCPCS: 36415; 80053; 85025

== ENCOUNTER → 2022-12-03 | Outpatient (CLI) | payer MEDICARE, SELFPAY ==
--- NOTE | 2022-12-03 13:30 | ASPIG_PTH ---
PATIENT: ROBI DIAZ LOC: [facility] U#:[id number] AGE/SX: 72/F ROOM: RE12/03/[address]: Dr. Gopal Padilla MD : 1950 BED: DIS: 12/03/2022 SPEC #: [id number] RECD: 12/03/22 16:37 STATUS: SHANKAR NANDINI #: [id number] SOLEDAD: 12/03/22 13:[address]: Gopal Padilla DEPT: CYTOLOGY RECD BY: More Long ENTERED: 12/04/22 09:16 SP TYPE: ASP OUT OTHR DR: Adarsh Hester, [employer] SCOUT-C Tissues: A - Thyroid gland, NOS B - Thyroid gland, NOS Procedures: FNA Specimen Adequacy Special Stain Group II Surgery Specimen Level IV Cytology Other HEADER OPERATION: Fine needle aspiration left thyroid nodules PRE-OP DIAGNOSIS: Left thyroid nodules TISSUE SUBMITTED: A ? Left thyroid nodule fluid, B ? Left thyroid nodule x4 slides DIAGNOSIS CYTOLOGY A. Left thyroid nodule fluid, fine needle aspiration (cytospin and cell block): A few clusters of benign follicular cells noted. See comment. B. Left thyroid nodule, fine needle aspiration (smears): A few clusters of benign follicular cells noted. See comment. SJ:rg 12/05/2022 COMMENT A & B. The specimens are paucicellular, however, meets the minimal criteria for adequacy of evaluation by combining number of follicular cells present in both specimens. The lesion is consistent with benign follicular/colloid nodule. Kerrick category II. Correlation with clinical, radiologic findings and appropriate follow up are necessary. The Kerrick System for thyroid diagnostic categorization was used in the evaluation of this case. Please make reference to previous specimen ([id number]) right thyroid lobe, lobectomy with diagnosis of ?multinodular goiter with a dominant adenomatoid nodule.? CYTOLOGY STUDY Slides are reviewed. CYTOLOGY GROSS A - Received is 30 ml of red hazy fluid labeled with the patient's name and and designated per the requisition as left thyroid nodule. Submitted for cytology preparation including cell block. B - Received are four smears labeled with the patient's name and designated per the requisition as left thyroid nodule. Submitted for staining. / kevin 12/04/2022 TC:5 CPT: 46941 x2, 33563
== END | disposition home or self-care (01) ==
LOC: LABSPEC 16:52
PROVIDERS: PCP Nurse Practitioner Family; Referring Provider Surgery; Visit Provider Surgery
DX: E04.1 Nontoxic single thyroid nodule (principal)
CPT/HCPCS: 88161; 88172; 88305; 88313

== ENCOUNTER → 2022-12-04 | Outpatient (CLI) | payer MEDICARE, SELFPAY ==
[2022-12-04 16:31] LABS: Free T3 2.4 pg/mL (2.18-3.98); T4 Total, Thyroxin 7.1 ug/dL (4.8-13.9); Thyroid Stim Hormone (TSH) 1.48 uIU/mL (0.358-3.74)
== END | disposition home or self-care (01) ==
LOC: LAB 14:50
PROVIDERS: PCP Nurse Practitioner Family; Referring Provider Surgery; Visit Provider Surgery
DX: E04.2 Nontoxic multinodular goiter (principal)
CPT/HCPCS: 36415; 84436; 84443; 84481

== ENCOUNTER → 2023-01-13 | Outpatient (CLI) | payer MEDICARE, SELFPAY ==
[2023-01-13 18:18] LABS: Absolute Neutrophil Count 3.2 X10^3/uL (2.0-7.7); Basophil# 0.05 X10^3/uL; Basophil% 0.9 % (0-1); Eosinophil# 0.15 X10^3/uL; Eosinophils% 2.7 % (0-5); Hematocrit 39.5 % (37-47); Hemoglobin 13.2 g/dL (12.0-15.0); Lymphocyte % 31.1 % (19-41); Mean Corp Hgb Conc 33.4 g/dL (32-36); Mean Corpuscular Hgb 32.4 pg (27.0-32.0); Mean Corpuscular Volume 97.1 fL (81-99); Mean Platelet Vol. 8.7 fl (6.2-12.0); Monocyte% 7.3 % (0-10); NRBC Flagged by Analyzer 0 % (0-5); Neutrophil # 3.15 X10^3/uL (2.7-7.7); Neutrophil % 57.8 % (47-70); Platelet Count 285 K/mm3 (150-450); RBC Distribution Width CV 13.3 % (11.6-14.6); RBC Distribution Width SD 47.8 fl (35.1-43.9); Red Blood Count 4.07 M/mm3 (4.2-5.4); White Blood Count 5.5 K/mm3 (4.4-11.0)
[2023-01-13 18:45] LABS: ALB/GLOB Ratio 1.1 RATIO (0.9-2.4); AST(SGOT) 12 U/L (15-37); Alanine Aminotransfer ALT/SGPT 17 U/L (13-56); Albumin, Serum 3.3 g/dL (3.2-5.0); Alkaline Phosphatase 64 U/L (45-117); Anion Gap 9 (5-15); BUN 17 mg/dL (7-18); BUN/Creat Ratio 20.4 RATIO (10-20); Calcium,Total 8.8 mg/dL (8.5-10.1); Chloride 108 mmol/L (98-107); Creatinine, Serum 0.83 mg/dL (0.55-1.02); EST Glomerular Filtration Rate 72 mL/min (>60); Est Glom Filt Rate - Afr Amer 87 mL/min (>60); Glucose 88 mg/dL (74-106); Potassium 3.7 mmol/L (3.5-5.1); Protein, Total 6.3 g/dL (6.4-8.2); Sodium Level 139 mmol/L (136-145)
== END | disposition home or self-care (01) ==
LOC: MTLAB 15:31
PROVIDERS: PCP Nurse Practitioner Family; Referring Provider Internal Medicine Rheumatology; Visit Provider Internal Medicine Rheumatology
DX: M06.4 Inflammatory polyarthropathy (principal); Z79.899 Other long term (current) drug therapy
CPT/HCPCS: 36415; 80053; 85025

== ENCOUNTER → 2023-02-04 | Outpatient (CLI) | payer MEDICARE, SELFPAY ==
--- NOTE | 2023-02-04 08:21 | BD_ITS ---
STUDY: DUAL ENERGY X-RAY ABSORPTIOMETRY / DXA REASON FOR EXAM: Female, 72 years old. Screening TECHNIQUE: Bone Mineral Density (BMD) measurements of lumbar spine and bilateral hips were obtained. COMPARISON: Comparison is made with prior study dated February 10, 2019. FINDINGS: Lumbar Spine (L1-L4): g/cm2 (0.957) / T-score (-0.8) / Z-score (1.3) Findings are suggestive of normal bone density with a low fracture risk. Left Femur Total: g/cm2 (0.880) / T-score (-0.5) / Z-score (1.0) Left Femoral Neck: g/cm2 (0.854) / T-score (0.0) / Z-score (1.9) Right Femur Total: g/cm2 (0.826) / T-score (-1.0) / Z-score (0.6) Right Femoral Neck: g/cm2 (0.808) / T-score (-0.4) / Z-score (1.4) The T-Scores on the most recent prior examination were: Lumbar Spine (L1-L4): There has been worsening of bone density since the previous examination. Left Femur Total: which represents a worsening of 4.8%. Right Femur Total: which represents a worsening of 9.2%. BD/Dexa Bone Density Study IMPRESSION: The patient is considered normal as outlined below according to World Chris Organization (WHO) criteria with a low fracture risk. There has been worsening of bone density since the previous examination. Reference Information: The T-score is the number of standard deviations above or below the standard which is normal for young adults at their peak bone mineral density. The World Health Organization (WHO) interprets the T-scores as follows: Above -1 Normal bone density Between -1 and -2.5 Osteopenia Equal to / or below -2.5 Osteoporosis As a practical clinical guideline, osteopenia may be graded as follows: Mild -1 through -1.5 Moderate -1.6 through -2.0 Severe -2.1 through -2.4 The Z-score is the number of standard deviations above or below age-matched controls. A Z-score of less than -1.5 would be considered abnormal. References: 1. NIH Osteoporosis and Related Bone Diseases www osteo.org 2. International Society for Clinical Densitometry www iscd.org 3. National Osteoporosis Foundation www nof.org Electronically Signed: Jose Davidson MD at 13:46 EDT ,
== END | disposition home or self-care (01) ==
LOC: OPBD 08:16
PROVIDERS: PCP Internal Medicine; Referring Provider Internal Medicine; Visit Provider Internal Medicine
DX: Z13.820 Encounter for screening for osteoporosis (principal); Z78.0 Asymptomatic menopausal state
CPT/HCPCS: 77080

== ENCOUNTER → 2023-02-14 | Outpatient (CLI) | payer MEDICARE, SELFPAY ==
--- NOTE | 2023-02-14 13:52 | BI_ITS ---
MAMMOGRAPHY - BILATERAL SCREENING REASON FOR EXAM: Female, 72 years old. Routine annual screening examination. PERTINENT HISTORY: Non-contributory. TECHNIQUE: Digital bilateral breast arsen (3D mammographic acquisition) in the CC and MLO projections. 2-D mediolateral oblique (MLO) and craniocaudad (CC) views of both breasts were obtained. CAD: Full Field Digital Mammography with Computer Added Detection was performed. COMPARISON: Comparison is made with prior study dated January 17, 2022 and March 28, 2020. FINDINGS: Breast Composition: There are scattered areas of fibroglandular density. There are no dominant masses or suspicious calcifications. A tissue clip marker is once again seen in the anterior upper central portion of the left breast No other significant abnormalities are identified. There has been no significant change since the prior study. BI/SCRN MAMM (CAD)W/ARSEN BILAT IMPRESSION: Stable bilateral screening mammogram. Yearly follow-up mammogram recommended. (A) ASSESSMENT CATEGORY: BIRADS Category 2: Benign. A letter regarding these results will be sent to the patient by the facility within 30 days. Approximately 10% of breast cancers are not detected by mammography. A normal mammogram should not delay biopsy of a clinically suspicious abnormality. [id number] Electronically Signed: Jose Davidson MD at 14:53 EDT ,
== END | disposition home or self-care (01) ==
LOC: OPBI 13:49
PROVIDERS: PCP Internal Medicine; Referring Provider Internal Medicine; Visit Provider Internal Medicine
DX: Z12.31 Encounter for screening mammogram for malignant neoplasm of breast (principal)
CPT/HCPCS: 77063; 77067

== ENCOUNTER → 2023-03-18 | Outpatient (CLI) | payer MEDICARE, SELFPAY ==
[2023-03-18 17:41] LABS: Absolute Lymphocyte Count 2.05 X10^3/uL (0.83-4.51); Absolute Neutrophil Count 5.6 X10^3/uL (2.0-7.7); Basophil# 0.05 X10^3/uL; Basophil% 0.6 % (0-1); Eosinophil# 0.12 X10^3/uL; Eosinophils% 1.4 % (0-5); Hematocrit 44.1 % (37-47); Hemoglobin 14.4 g/dL (12.0-15.0); Lymphocyte # 2.05 X10^3/ul (0.83-4.51); Lymphocyte % 24.3 % (19-41); Mean Corp Hgb Conc 32.7 g/dL (32-36); Mean Corpuscular Hgb 33.3 pg (27.0-32.0); Mean Corpuscular Volume 102.1 fL (81-99); Mean Platelet Vol. 8.4 fl (6.2-12.0); Monocyte# 0.63 X10^3/uL; Monocyte% 7.5 % (0-10); NRBC Flagged by Analyzer 0 % (0-5); Neutrophil # 5.56 X10^3/uL (2.7-7.7); Neutrophil % 65.8 % (47-70); Platelet Count 279 K/mm3 (150-450); RBC Distribution Width CV 14.2 % (11.6-14.6); RBC Distribution Width SD 53.7 fl (35.1-43.9); Red Blood Count 4.32 M/mm3 (4.2-5.4); White Blood Count 8.4 K/mm3 (4.4-11.0)
[2023-03-18 21:11] LABS: ALB/GLOB Ratio 1.2 RATIO (0.9-2.4); AST(SGOT) 21 U/L (15-37); Alanine Aminotransfer ALT/SGPT 30 U/L (13-56); Albumin, Serum 3.8 g/dL (3.2-5.0); Alkaline Phosphatase 75 U/L (45-117); Anion Gap 7 (5-15); BUN 20 mg/dL (7-18); BUN/Creat Ratio 18.9 RATIO (10-20); Calcium,Total 9.4 mg/dL (8.5-10.1); Chloride 106 mmol/L (98-107); Creatinine, Serum 1.06 mg/dL (0.55-1.02); EST Glomerular Filtration Rate 54 mL/min (>60); Est Glom Filt Rate - Afr Amer 66 mL/min (>60); Globulin 3.3 g/dL (2.2-4.2); Glucose 33 mg/dL (74-106); Potassium 3.8 mmol/L (3.5-5.1); Protein, Total 7.1 g/dL (6.4-8.2); Sodium Level 141 mmol/L (136-145)
== END | disposition home or self-care (01) ==
LOC: MTLAB 15:41
PROVIDERS: PCP Internal Medicine; Referring Provider Internal Medicine Rheumatology; Visit Provider Internal Medicine Rheumatology
DX: M06.4 Inflammatory polyarthropathy (principal); M65.341 Trigger finger, right ring finger; Z79.899 Other long term (current) drug therapy
CPT/HCPCS: 36415; 80053; 85025

== ENCOUNTER → 2023-06-09 | Outpatient (CLI) | payer MEDICARE, SELFPAY ==
[2023-06-09 17:47] LABS: Absolute Lymphocyte Count 1.91 X10^3/uL (0.83-4.51); Absolute Neutrophil Count 4.3 X10^3/uL (2.0-7.7); Basophil# 0.05 X10^3/uL; Basophil% 0.7 % (0-1); Eosinophil# 0.16 X10^3/uL; Eosinophils% 2.3 % (0-5); Hematocrit 44.5 % (37-47); Hemoglobin 14.2 g/dL (12.0-15.0); Lymphocyte # 1.91 X10^3/ul (0.83-4.51); Lymphocyte % 27.1 % (19-41); Mean Corp Hgb Conc 31.9 g/dL (32-36); Mean Corpuscular Volume 103.5 fL (81-99); Mean Platelet Vol. 8.5 fl (6.2-12.0); Monocyte# 0.59 X10^3/uL; Monocyte% 8.4 % (0-10); NRBC Flagged by Analyzer 0 % (0-5); Neutrophil # 4.32 X10^3/uL (2.7-7.7); Neutrophil % 61.1 % (47-70); Platelet Count 315 K/mm3 (150-450); RBC Distribution Width CV 13.3 % (11.6-14.6); RBC Distribution Width SD 50.6 fl (35.1-43.9); White Blood Count 7.1 K/mm3 (4.4-11.0)
[2023-06-09 17:56] LABS: ALB/GLOB Ratio 1.2 RATIO (0.9-2.4); AST(SGOT) 30 U/L (15-37); Alanine Aminotransfer ALT/SGPT 42 U/L (13-56); Albumin, Serum 3.9 g/dL (3.2-5.0); Alkaline Phosphatase 71 U/L (45-117); Anion Gap 7 (5-15); BUN 18 mg/dL (7-18); BUN/Creat Ratio 18.5 RATIO (10-20); Calcium,Total 9.1 mg/dL (8.5-10.1); Chloride 101 mmol/L (98-107); Creatinine, Serum 0.97 mg/dL (0.55-1.02); EST Glomerular Filtration Rate 60 mL/min (>60); Est Glom Filt Rate - Afr Amer 73 mL/min (>60); Globulin 3.3 g/dL (2.2-4.2); Glucose 95 mg/dL (74-106); Potassium 4.1 mmol/L (3.5-5.1); Protein, Total 7.2 g/dL (6.4-8.2); Sodium Level 137 mmol/L (136-145)
== END | disposition home or self-care (01) ==
LOC: MTLAB 14:25
PROVIDERS: PCP Internal Medicine; Referring Provider Internal Medicine Rheumatology; Visit Provider Internal Medicine Rheumatology
DX: M06.4 Inflammatory polyarthropathy (principal); M65.341 Trigger finger, right ring finger; Z79.899 Other long term (current) drug therapy
CPT/HCPCS: 36415; 80053; 85025

== ENCOUNTER → 2023-09-08 | Outpatient (CLI) | payer MEDICARE, SELFPAY ==
[2023-09-08 15:32] LABS: Absolute Lymphocyte Count 1.49 X10^3/uL (0.83-4.51); Absolute Neutrophil Count 4.2 X10^3/uL (2.0-7.7); Basophil# 0.03 X10^3/uL; Basophil% 0.5 % (0-1); Eosinophil# 0.21 X10^3/uL; Eosinophils% 3.3 % (0-5); Hematocrit 41.8 % (37-47); Lymphocyte # 1.49 X10^3/ul (0.83-4.51); Lymphocyte % 23.5 % (19-41); Mean Corp Hgb Conc 33.5 g/dL (32-36); Mean Corpuscular Hgb 33.2 pg (27.0-32.0); Mean Corpuscular Volume 99.1 fL (81-99); Mean Platelet Vol. 8.8 fl (6.2-12.0); Monocyte# 0.45 X10^3/uL; Monocyte% 7.1 % (0-10); NRBC Flagged by Analyzer 0 % (0-5); Neutrophil # 4.15 X10^3/uL (2.7-7.7); Neutrophil % 65.4 % (47-70); Platelet Count 273 K/mm3 (150-450); RBC Distribution Width CV 13.2 % (11.6-14.6); RBC Distribution Width SD 47.9 fl (35.1-43.9); Red Blood Count 4.22 M/mm3 (4.2-5.4); White Blood Count 6.3 K/mm3 (4.4-11.0)
[2023-09-08 16:24] LABS: ALB/GLOB Ratio 1.3 RATIO (0.9-2.4); AST(SGOT) 32 U/L (15-37); Alanine Aminotransfer ALT/SGPT 37 U/L (13-56); Albumin, Serum 3.9 g/dL (3.2-5.0); Alkaline Phosphatase 74 U/L (45-117); Anion Gap 6 (5-15); BUN 15 mg/dL (7-18); BUN/Creat Ratio 19.3 RATIO (10-20); Calcium,Total 9.6 mg/dL (8.5-10.1); Chloride 107 mmol/L (98-107); Creatinine, Serum 0.78 mg/dL (0.55-1.02); EST Glomerular Filtration Rate 78 mL/min (>60); Est Glom Filt Rate - Afr Amer 94 mL/min (>60); Globulin 3.1 g/dL (2.2-4.2); Glucose 88 mg/dL (74-106); Potassium 4.1 mmol/L (3.5-5.1); Sodium Level 139 mmol/L (136-145)
--- OUTSIDE RECORDS SUMMARY | 2023-09-08 23:03 | XMS RPT_ITS | CCD ---
Author Name Unknown Address [address] [place] [address] Organization [facility] Care Team Providers Care Laminator Preforms Name Role Phone DANIELLE OSULLIVAN Primary Care Unavailable Danielle Osullivan Primary Care Provider [phone] Lily Cronin MD Primary Care Provider Adarsh Hester Unavailable Unavailable Ashok Ramirez Unavailable Unavailable LILY CRONIN Primary Care Unavailable SHAWN VALDEZ II Attending Unavailabl e Allergies Allergy Classification Reported Allergen(s) Allergy Type Date of Onset Reaction(s) Facility (2 sources) Adhesive agent; Translations: [ADHESIVE] Drug Allergy 8 Intolerance [facility] (1 source) Nicotine Drug Allergy 2 Itching [facility] Work Phone: (2 sources) Blue Dye; Translations: [BLUE DYE] Drug Allergy 5 Unknown [facility] (1 source) OTHER; Translations: [OTHER] Propensity to adverse reactions (disorder) 2 [facility] Medications Current Medications Medication Drug Class(es) Dates Sig (Normalized) Sig (Original) escitalopram 10 mg oral tablet (1 source) Serotonin Reuptake Inhibitor Start: 10-19-2018 take 1 tablet by mouth once daily escitalopram oxalate (LEXAPRO) 10 MG tablet Take 1 (one) tablet (10 mg total) by mouth nightly . 30 tablet 5 10/19/2018 Active traZODone hydrochloride 100 mg oral tablet (2 sources) Serotonin Reuptake Inhibitor Start: 10-19-2018 take 1 tablet by mouth once daily as needed for sleep traZODone (DESYREL) 100 MG tablet Take 1 (one) tablet (100 mg total) by mouth nightly as needed for sleep . 90 tablet 1 10/19/2018 Active Completed/Discontinued Medications Medication Drug Class(es) Dates Sig (Normalized) Sig (Original) aspirin 81 mg oral tablet (1 source) Platelet Aggregation Inhibitor, Nonsteroidal Anti-inflammatory Drug Start: 06-25-2006 ASPIRIN 81 MG TAB Take 1 tablets daily 0 06/25/2006 Active Problems Active Problems Problem Classification Problem Date Documented Da te Episodic/Chronic Allergic reactions (1 source) Contact dermatitis due to Genus Toxicodendron; Translations: [Contact dermatitis and other eczema due to plants [except food]] 02-06-2022 Episodic Anxiety disorders (3 sources) Generalized anxiety disorder; Translations: [Generalized anxiety disorder] Onset: 10-01-2017 10-01-2017 Chronic Blindness and vision defects (6 sources) Bilateral myopia of eyes; Translations: [Myopia, bilateral] Onset: 06-12-2015 Episodic Cataract (1 source) Combined form of senile cataract; Translations: [Combined forms of age-related cataract, unspecified eye] Onset: 06-12-2015 06-12-2015 Chronic Mood disorders (1 source) Depressive disorder; Translations: [Depression] Onset: 10-01-2017 10-01-2017 Chronic Other eye disorders (1 source) Vitreous floaters; Translations: [Other vitreous opacities, unspecified eye] Onset: 06-12-2015 06-12-2015 Chronic Other upper respiratory disease (2 sources) Allergic rhinitis, unspecified; Translations: [Allergic rhinitis, unspecified] Onset: 10-01-2017 Chronic Other upper respiratory disease (1 source) Allergic rhinitis; Translations: [Allergic rhinitis] Onset: 10-01-2017 10-01-2017 Chronic Superficial injury; contusion (1 source) Foreign body in thumb; Translations: [Superficial foreign body (splinter) of finger(s), without major open wound and without mention of infection] 02-06-2022 Episodic Thyroid disorders (3 sources) Hypothyroidism, unspecified; Translations: [Non-toxic multinodular goiter] Onset: 01-31-2015 01-31-2015 Chronic Unclassified (1 source) Patient encounter status; Translations: [Encounter for screening for lung cancer] Onset: 10-19-2018 10-19-2018 Unclassified (2 sources) RASH 02-06-2022 Past or Other Problems Problem Classification Problem Date Documented Da te Episodic/Chronic Other inflammatory condition of skin (1 source) Prurigo nodularis; 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] Onset: 08-10-2015 08-10-2015 Episodic Other screening for suspected conditions (not mental disorders or infectious disease) (3 sources) Other specified abnormal findings of blood chemistry; Translations: [Thyroid function tests abnormal] Onset: 10-01-2017 10-01-2017 Episodic Other skin disorders (1 source) Seborrheic keratosis; Translations: [Other seborrheic keratosis] Onset: 08-10-2015 08-10-2015 Episodic Results Test Name Value Interpretation Reference Range Facil ity Vital Signs Date Time Vital Sign Value Performing Clinician Facility 02-06-2022 17:06-0400 Body height 158.7 cm [facility] 02-06-2022 17:06-0400 Body temperature 97.16 [degF] [facility] 02-06-2022 17:06-0400 Diastolic blood pressure 90 mm[Hg] [facility] 02-06-2022 17:06-0400 Heart rate 75 /min [facility] 02-06-2022 17:06-0400 SaO2% (BldA) [Mass fraction] 98 % [facility] 02-06-2022 17:06-0400 Systolic blood pressure 148 mm[Hg] [facility] Encounters Encounter Date Encounter Type Care Provider Facility Start: 11-06-2022 End: 11-06-2022 ambulatory LILY CRONIN Facility:[facility] Start: 02-06-2022 End: 02-06-2022 Emergency department patient visit Ashok Ramirez [facility] Start: 10-01-2021 End: 10-01-2021 Patient encounter procedure Thelma Valdez OD Work Phone: Optometry Procedures Date Procedure Procedure Detail Performing Clinician Start: 05-15-2018 Mammography Jennifer betancourt Start: 04-29-2018 Colonoscopy Jennifer betancourt Start: 04-03-2015 Colonoscopy Thelma kendall OD Work Phone: Plan of Treatment Date Care Activity Detail Author Start: 04-29-2028 Screening for malignant neoplasm of colon [facility] Start: 08-13-2021 Tetanus vaccination Tetanus: Every 10yrs [facility] Start: 08-13-2021 Urine microalbumin profile DTAP,TDAP,TD (2 - Td or Tdap) [facility] Start: 07-14-2021 ADVANCE DIRECTIVE DISCUSSION ADVANCE DIRECTIVE DISCUSSION [facility] Start: 01-04-2021 COVID-19 VACCINE (2 - Booster for Edita series) COVID-19 VACCINE (2 - Booster for Edita series) [facility] Start: 12-18-2020 End: 12-18-2020 Office Visit 12/18/2020 Office Visit [address] [facility] Start: 03-14-2020 Influenza vaccination given Sequential Influenza Vaccine (#1) [facility] Start: 01-12-2020 LIPID SCREEN LIPID SCREEN [facility] Start: 05-15-2019 Mammography MAMMOGRAM [facility] Start: 05-15-2019 Screening mammography Mammogram [facility] Start: 04-20-2019 History and physical examination, annual for health maintenance Wellness Visit [facility] Start: 05-08-2018 Pneumococcal vaccination Pneumococcal Vaccine Age 65+ (1 of 2 - PCV13) [facility] Start: 04-03-2018 Colonoscopy COLONOSCOPY [facility] Start: 04-03-2018 COLORECTAL CANCER SCREENING COLORECTAL CANCER SCREENING [facility] Start: 01-11-2018 DIABETES SCREEN DIABETES SCREEN [facility] Start: 2017 BONE DENSITY BONE DENSITY [facility] Start: 2017 PNEUMOVAX AGE 65 AND OVER WITH 5YR LOOKBACK (#1) PNEUMOVAX AGE 65 AND OVER WITH 5YR LOOKBACK (#1) [facility] Start: 10-13-2012 Administration of herpes zoster vaccine Zoster Vaccines (2 of 3) [facility] Start: 10-13-2012 SHINGRIX VACCINE (2 of 3) SHINGRIX VACCINE (2 of 3) [facility] Start: 2002 Screening for malignant neoplasm of colon [facility] Start: 1997 COLOGUARD (FIT-DNA) COLOGUARD (FIT-DNA) [facility] Start: [address] COLONOGRAPHY [facility] Start: 1997 FECAL OCCULT BLOOD FECAL OCCULT BLOOD [facility] Start: 1997 SIGMOIDOSCOPY SIGMOIDOSCOPY [facility] Start: 1970 Hepatitis C antibody, confirmatory test Hepatitis C Screening [facility] Start: 1970 HEPATITIS C SCREENING HEPATITIS C SCREENING [facility] Start: 1968 COVID-19 Vaccine (1 of 2) COVID-19 Vaccine (1 of 2) [facility] Start: 1964 Adult depression screening assessment DEPRESSION SCREENING [facility] Start: 1952 Fall risk assessment Falls Risk Assessment [facility] Start: 1952 Screening for osteoporosis Dexa Scan [facility] Immunizations Immunization Date Immunization Notes Care Provider Fa kaley 10-19-2018 flu vacccine qv 2018 , 4yr up,,CD, (FLUCELVAX QUAD) injection [facility] 04-20-2018 Influenza, injectabl e, Madin Rosemary Canine Kidney, quadrivalent with preservative [facility] 05-08-2017 Influenza, injectabl e, [facility] Canine Kidney, preservative free, quadrivalent [facility] 05-08-2017 pneumococcal polysaccharide vaccine, 23 valent [facility] 05-23-2014 influenza virus vacc ine, whole virus [facility] 04-28-2013 influenza virus vacc ine, whole virus [facility] 08-18-2012 zoster vaccine, live [place] Aakash mazariegosna [facility] 04-01-2012 hepatitis B vaccine, adult dosage [facility] 04-01-2012 hepatitis B vaccine, pediatric or pediatric/adolescent dosage [facility] 09-11-2011 hepatitis B vaccine, adult dosage [facility] 09-11-2011 hepatitis B vaccine, pediatric or pediatric/adolescent dosage [facility] 08-13-2011 hepatitis B vaccine, adult dosage [facility] 08-13-2011 hepatitis B vaccine, pediatric or pediatric/adolescent dosage [facility] 08-13-2011 tetanus toxoid, redu alberto diphtheria toxoid, and acellular pertussis vaccine, adsorbed [facility] 06-30-2009 novel influenza-H1N1 -09, preservative-free, injectable [facility] 05-09-2009 influenza virus vacc ine, whole virus [facility] 05-13-2008 influenza virus vacc ine, whole virus [facility] 06-09-2007 influenza virus vacc ine, whole virus [facility] 05-31-1997 pneumococcal polysaccharide vaccine, 23 valent [facility] Payers Date Payer Category Payer Medicare [id number] 2017 Medicare HUMANA MANAGED M [employer] HU[employer]NA MCR ADVANTAGE CHOICE PPO [id number] 2017-Present [id number] 2017 Unknown EYE CARE PLAN OF [place]ESSAN[place]A EYEMED VISION [id number] 09/04/2017-Present [id number] [place] [address] Indemnity [id number] 09-04-2017 Unknown [id number] 1950 Unknown [id number] Unknown [employer]NA GOLD PERRIN CE\HUMANA GOLD CHOICE Social History Date Type Detail Facility Start: 12-24-2011 End: 10-19-2018 Tobacco smoking status NHIS Former smoker [facility] Start: 12-24-2011 End: 10-19-2018 Tobacco use and exposure Never used [facility] Start: 10-19-2018 End: 10-01-2021 Alcohol intake Current drinker of alcohol (finding) [facility] Start: 1950 Sex Assigned At Not on file [facility] End: 11-10-2011 History of tobacco use Current smoker [facility] End: 11-10-2011 History of tobacco use Cigarette Smoker [facility] Start: 12-05-2010 Tobacco Comment 5 cig per day [facility] Start: 09-21-2021 End: 10-01-2021 Exposure to SARS-CoV-2 (event) Not sure [facility] Tobacco smoking consumption unknown [facility] Progress note 11-06-2022 Note Date & Type Note Facility 11-06-2022 Note HNO ID: [id number] Author: Shawn Valdez II, OD Service: ? Author Type: AGING DEPARTMENT SUPERVISOR Type: Progress Notes Filed: 11/06/2022 2:01 PM Note Text: Assessment and Plan H52.13 Myopia of both eyes (primary encounter diagnosis) H52.223 Regular astigmatism of both eyes H52.4 Presbyopia Comment: Ocular health maintained with contact lens use. Good fit. Salmon updated. Recheck in one year. 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 Well tolerated at this time. Discussed possible future affect on daily activities to watch for. Monitor as instructed. I have confirmed and edited as necessary the relevant ophthalmic history, ROS, and the neuro exam findings as obtained by others. I have seen and examined Michael Hollingsworth. I have discussed the case and the management of this patient's care with the Resident/Fellow, if applicable. I also have reviewed and agree with the assessment and plan as stated above and agree with all of its relevant components. Shawn Valdez II, OD [facility] Instructions 10-01-2021 Patient Instructions Note Date & Type Note Facility 10-01-2021 Instructions Thelma Valdez, OD - 10/01/2021 1:48 PM EDT ASSESSMENT/PLAN: 1. Myopia of both eyes - ICD9: 367.1, ICD10: H52.13 (primary diagnosis) 2. Regular astigmatism of both eyes - ICD9: 367.21, ICD10: H52.223 3. Presbyopia - ICD9: 367.4, ICD10: H52.4 Continue to wear her glasses as desired and suggested an update. Dispensed updated contact lens salmon to try. Recommended yearly exams documented in this encounter [facility] History of Present illness Narrative 10-01-2021 Thelma Valdez, OD - 10/01/2021 1:46 PM EDT Note Date & Type Note Facility 10-01-2021 History of Presen t illness Narrative ASSESSMENT/PLAN: 1. Myopia of both eyes - ICD9: 367.1, ICD10: H52.13 (primary diagnosis) 2. Regular astigmatism of both eyes - ICD9: 367.21, ICD10: H52.223 3. Presbyopia - ICD9: 367.4, ICD10: H52.4 Continue to wear her glasses as desired and suggested an update. Dispensed updated contact lens salmon to try. Recommended yearly exams Thelma Valdez, MELISSA documented in this encounter [facility] Evaluation note Note Date & Type Note Facility documented in this encounter [facility] Summary Purpose Family History No Family History Records FoundNo Family History Records FoundNo Family History Records Found Advance Directives No Advanced Directives Records FoundDocuments on File Type Date Recorded Patient Commercial Credit Analyst Expl anation Advance Directives and Living Will Documents on File Type Date Recorded Patient Commercial Credit Analyst Expl anation Advance Directive(s) Medications Administered Section Inactive Administered Medications - up to 3 most recent administrations Medication Order MAR Action Action Date Dose Rate Site tropicamide 1 % 1 Drop (MYDRIACYL) 1 Drop, BOTH EYES, ONCE, 1 dose, On 10/01/21 at 1330, FOR THE EYE Given 10/01/2021 1:30 PM EDT 1 Drop Additional Source Comments INFORMATION SOURCE (unrecogn ized section and content) DATE CREATED AUTHOR AUTHOR'S ORGANIZ ATION 02/09/2022 [facility] DATE CREATED AUTHOR AUTHOR'S ORGANIZ ATION 11/08/2022 [facility] Source Comments (unrecognize d section and content) In the event this informatio n is protected by the Federal Confidentiality of Alcohol and Drug Abuse Patient Records regulations: The Federal rules restrict any use of the information to criminally investigate or prosecute any alcohol or drug abuse patient.[facility] Reason for Visit (unrecogniz ed section and content) Care Teams (unrecognized sec tion and content) <item> Privacy Markings (unrecogniz ed section and content) Section Author: Pallavi Fraser PROHIBITION ON REDISCLOSURE OF CONFIDENTIAL INFORMATION This notice accompanies a disclosure of information concerning a client made to you with the consent of such client. FOR RECORDS PERTAINING TO PATIENTS WHO ARE OR HAVE BEEN ENROLLED IN A CHEMICAL DEPENDENCY/SUBSTANCEABUSE PROGRAM, SOME INFORMATION MAY BE OMITTED. This clinical summary was aggregated from multiple sources. Caution should be exercised in using it in the provision of clinical care. This summary normalizes information from multiple sources, and as a consequence, information in this document may materially change the coding, format and clinical context of patient data. In addition, data may be omitted in some cases. CLINICAL DECISIONS SHOULD BE BASED ON THE PRIMARY CLINICAL RECORDS. [facility] [x+1] [facility]. provides no warranty or guarantee of the accuracy or completeness of information in this document.
== END | disposition home or self-care (01) ==
LOC: MTLAB 14:09
PROVIDERS: Referring Provider Internal Medicine Rheumatology; Visit Provider Internal Medicine Rheumatology
DX: M06.4 Inflammatory polyarthropathy (principal); Z79.899 Other long term (current) drug therapy
CPT/HCPCS: 36415; 80053; 85025

== ENCOUNTER → 2023-11-24 | Outpatient (CLI) | payer MEDICARE, SELFPAY ==
--- NOTE | 2023-11-24 12:42 | US_ITS ---
STUDY: THYROID ULTRASOUND REASON FOR EXAM: Female, 73 years old. Multiple thyroid nodules TECHNIQUE: Ultrasound evaluation of the thyroid was performed with real-time and static askew-scale imaging. COMPARISON: Comparison is made with prior study dated October 31, 2022. FINDINGS: RIGHT LOBE: There has been resection of the right lobe of the thyroid. LEFT LOBE: The left lobe of the thyroid gland is enlarged and measures 5.4 cm x 2.8 cm x 2.4 cm. There is a homogeneous echotexture. Once again, there is a complex solid and cystic mass in the inferior aspect of the left lobe of the thyroid gland measuring 3.1 cm x 2.6 cm x 2.2 cm. This is essentially unchanged. There is also evidence of a 1.6 cm x 1.2 cm x 1 cm isoechoic nodule medial to this dominant lesion. There has been essentially no change. ISTHMUS: The isthmus measures 2 mm. 2 benign-appearing lymph nodes are once again seen in the left cervical region. The larger measures 1.6 cm x 0.9 cm x 0.5 cm. US/Thyroid IMPRESSION: Status post resection of the right lobe of the thyroid. Stable examination of the left lobe. Biopsy recommended if not already performed. Electronically Signed: Jose Davidson MD at 8:39 EDT ,
== END | disposition home or self-care (01) ==
PROVIDERS: PCP Family Medicine; Referring Provider Surgery; Visit Provider Surgery
DX: E04.2 Nontoxic multinodular goiter (principal)
CPT/HCPCS: 76536

== ENCOUNTER → 2023-11-28 | Outpatient (CLI) | payer MEDICARE, SELFPAY ==
[2023-11-28 11:30] LABS: Free T3 2.7 pg/mL (2.18-3.98); T4 Total, Thyroxin 8.5 ug/dL (4.8-13.9); Thyroid Stim Hormone (TSH) 2.62 uIU/mL (0.358-3.74)
== END | disposition home or self-care (01) ==
PROVIDERS: PCP Family Medicine; Referring Provider Surgery; Visit Provider Surgery
DX: E04.2 Nontoxic multinodular goiter (principal)
CPT/HCPCS: 36415; 84436; 84443; 84481

== ENCOUNTER → 2023-12-11 | Outpatient (CLI) | payer MEDICARE, SELFPAY ==
[2023-12-11 15:54] LABS: Absolute Lymphocyte Count 1.64 X10^3/uL (0.83-4.51); Basophil# 0.05 X10^3/uL; Basophil% 0.9 % (0-1); Eosinophil# 0.15 X10^3/uL; Eosinophils% 2.8 % (0-5); Hematocrit 43.1 % (37-47); Hemoglobin 14.2 g/dL (12.0-15.0); Lymphocyte # 1.64 X10^3/ul (0.83-4.51); Lymphocyte % 30.8 % (19-41); Mean Corp Hgb Conc 32.9 g/dL (32-36); Mean Corpuscular Hgb 32.1 pg (27.0-32.0); Mean Corpuscular Volume 97.5 fL (81-99); Mean Platelet Vol. 9.3 fl (6.2-12.0); Monocyte# 0.43 X10^3/uL; Monocyte% 8.1 % (0-10); NRBC Flagged by Analyzer 0 % (0-5); Neutrophil # 3.04 X10^3/uL (2.7-7.7); Neutrophil % 57.2 % (47-70); Platelet Count 328 K/mm3 (150-450); RBC Distribution Width CV 13.1 % (11.6-14.6); RBC Distribution Width SD 46.5 fl (35.1-43.9); Red Blood Count 4.42 M/mm3 (4.2-5.4); White Blood Count 5.3 K/mm3 (4.4-11.0)
[2023-12-11 16:16] LABS: ALB/GLOB Ratio 1.3 RATIO (0.9-2.4); AST(SGOT) 21 U/L (15-37); Alanine Aminotransfer ALT/SGPT 25 U/L (13-56); Alkaline Phosphatase 75 U/L (45-117); Anion Gap 5 (5-15); BUN 14 mg/dL (7-18); BUN/Creat Ratio 16.1 RATIO (10-20); Calcium,Total 9.4 mg/dL (8.5-10.1); Chloride 105 mmol/L (98-107); Creatinine, Serum 0.87 mg/dL (0.55-1.02); EST Glomerular Filtration Rate 68 mL/min (>60); Est Glom Filt Rate - Afr Amer 83 mL/min (>60); Glucose 94 mg/dL (74-106); Potassium 4.1 mmol/L (3.5-5.1); Sodium Level 137 mmol/L (136-145)
== END | disposition home or self-care (01) ==
LOC: MTLAB 12:37
PROVIDERS: PCP Family Medicine; Referring Provider Internal Medicine Rheumatology; Visit Provider Internal Medicine Rheumatology
DX: M06.4 Inflammatory polyarthropathy (principal); Z79.899 Other long term (current) drug therapy; M65.341 Trigger finger, right ring finger
CPT/HCPCS: 36415; 80053; 85025

== ENCOUNTER → 2024-02-16 | Outpatient (CLI) | payer MEDICARE, SELFPAY ==
--- NOTE | 2024-02-16 12:12 | BI_ITS ---
MAMMOGRAPHY - BILATERAL SCREENING REASON FOR EXAM: Female, 73 years old. Routine annual screening examination. PERTINENT HISTORY: Non-contributory. History of prior left ultrasound-guided breast biopsy. TECHNIQUE: Digital bilateral breast arsen (3D mammographic acquisition) in the CC and MLO projections. 2-D mediolateral oblique (MLO) and craniocaudad (CC) views of both breasts were obtained. CAD: Full Field Digital Mammography with Computer Added Detection was performed. COMPARISON: Comparison is made with prior study February 14, 2023 and January 17, 2022. FINDINGS: Breast Composition: There are scattered areas of fibroglandular density. There are no dominant masses or suspicious calcifications. A tissue clip marker is once again seen in the anterior upper central portion of the left breast. No other significant abnormalities are identified. There has been no significant change since the prior study. BI/SCRN MAMM (CAD)W/ARSEN BILAT IMPRESSION: Stable bilateral screening mammogram. Yearly follow-up mammogram recommended. (A) ASSESSMENT CATEGORY: BIRADS Category 2: Benign. A letter regarding these results will be sent to the patient by the facility within 30 days. Approximately 10% of breast cancers are not detected by mammography. A normal mammogram should not delay biopsy of a clinically suspicious abnormality. [id number] Electronically Signed: Jose Davidson MD at 12:56 EDT ,
== END | disposition home or self-care (01) ==
LOC: OPBI 12:10
PROVIDERS: PCP Family Medicine; Referring Provider Family Medicine; Visit Provider Family Medicine
DX: Z12.31 Encounter for screening mammogram for malignant neoplasm of breast (principal)
CPT/HCPCS: 77063; 77067

== ENCOUNTER → 2024-05-31 | Outpatient (CLI) | payer MEDICARE, SELFPAY ==
[2024-05-31 12:58] LABS: Cholesterol 217 mg/dL (200); High Density Lipoprotein 77 mg/dL; Triglycerides 87 mg/dL; Very Low Density Lipoprotein 17 mg/dL (5-40)
== END | disposition home or self-care (01) ==
PROVIDERS: PCP Family Medicine; Referring Provider Family Medicine; Visit Provider Family Medicine
DX: Z13.220 Encounter for screening for lipoid disorders (principal)
CPT/HCPCS: 36415; 80061

== ENCOUNTER → 2024-07-01 | Outpatient (CLI) | payer MEDICARE, SELFPAY ==
[2024-07-01 15:55] LABS: Creatinine, Serum 0.78 mg/dL (0.55-1.02); EST Glomerular Filtration Rate 77 mL/min (>60); Est Glom Filt Rate - Afr Amer 94 mL/min (>60)
== END | disposition home or self-care (01) ==
PROVIDERS: PCP Family Medicine; Referring Provider Internal Medicine Rheumatology; Visit Provider Internal Medicine Rheumatology
DX: N28.9 Disorder of kidney and ureter, unspecified (principal)
CPT/HCPCS: 36415; 82565

== ENCOUNTER → 2024-08-06 | Outpatient (CLI) | payer MEDICARE, SELFPAY ==
[2024-08-06 18:08] LABS: Hemoglobin A1c 5.2 % (3.8-5.6)
== END | disposition home or self-care (01) ==
LOC: MTLAB 16:52
PROVIDERS: PCP Family Medicine; Referring Provider Family Medicine; Visit Provider Family Medicine
DX: R63.1 Polydipsia (principal)
CPT/HCPCS: 36415; 83036; 84443

== ENCOUNTER → 2024-11-23 | Outpatient (CLI) | payer MEDICARE, SELFPAY ==
--- NOTE | 2024-11-23 11:55 | US_ITS ---
PROCEDURE: THYROID 11/23/2024 REASON FOR EXAM: THYROID NODULES Prior resection of the right lobe of the thyroid. TECHNIQUE: High-frequency thyroid ultrasound, including grayscale and color-flow images. REFERENCE LINKS: TI-RADS Chart: [email or web address] TI-RADS Calculator Tool with Reference Images: [email or web address]/ COMPARISON: November 24, 2023. FINDINGS: Right thyroid lobe has been resected. Left thyroid lobe size: 5.2 cm x 2.8 cm x 2.5 cm Isthmus: 0.3 cm Background parenchymal echotexture is homogeneous. Nodules: . Lobe: Left, Location: Superior pole, Size: 1.3 cm x 1.1 cm x 0.8 cm, Stability: Stable Composition: Mixed cystic and solid (+1) Echogenicity: Hyper to Isoechoic (+1) Margin: Smooth (+0) Shape: Wider than tall (+0) Echogenic Foci: Peripheral calcification (+2) TI-RADS: <2 = TR 1 * 2 = TR 2 * 3 = TR 3 * 4-6 = TR 4 * >6 = TR 5 . Lobe: Left, Location: Mid lower pole, Size: 3.3 cm x 2.6 cm x 2.1 cm cm, Stability: Stable Composition: Mixed cystic and solid (+1) Echogenicity: Hyper to Isoechoic (+1) Margin: Smooth (+0) Shape: Wider than tall (+0) Echogenic Foci: None (+0) TI-RADS: <2 = TR 1 * 2 = TR 2 * 3 = TR 3 * 4-6 = TR 4 * >6 = TR 5 US/Thyroid IMPRESSION: Stable nodular densities in the left lobe of the thyroid. RECOMMENDATION: Based on most suspicious nodule. Nodule size = largest diameter Only evaluate nodule if =>5 mm. Growth > 20% in 2 dimensions = worsening. Follow up to 4 nodules. Recommend biopsy for no more than 2 nodules. Reading Location: [id number]
== END | disposition home or self-care (01) ==
LOC: US 11:54
PROVIDERS: PCP Family Medicine; Referring Provider Surgery; Visit Provider Surgery
DX: E04.2 Nontoxic multinodular goiter (principal)
CPT/HCPCS: 76536

== ENCOUNTER → 2024-12-14 | Outpatient (CLI) | payer MEDICARE, SELFPAY ==
--- NOTE | 2024-12-14 13:08 | RAD_ITS ---
PROCEDURE: SHOULDER MIN 2 VIEWS 12/14/2024 REASON FOR EXAM: RIGHT SHOULDER PAIN TECHNIQUE: Four views of the right shoulder COMPARISON: None RAD/Shoulder min 2 Views IMPRESSION: No acute fracture or dislocations. Mild degenerative changes of the right shou lder. No acute soft tissue abnormalities. Reading Location: [id number]
== END | disposition home or self-care (01) ==
LOC: MTRAD 13:08
PROVIDERS: PCP Family Medicine; Referring Provider Family Medicine; Visit Provider Family Medicine
DX: S49.91XA Unspecified injury of right shoulder and upper arm, initial encounter (principal); X58.XXXA Exposure to other specified factors, initial encounter
CPT/HCPCS: 73030

== ENCOUNTER → 2025-03-01 | Outpatient (CLI) | payer MEDICARE, SELFPAY ==
--- NOTE | 2025-03-01 14:37 | RAD_ITS ---
PROCEDURE: FOOT MIN 3 VIEWS 03/01/2025 REASON FOR EXAM: FOOT PAIN TECHNIQUE: FOOT MIN 3 VIEWS Laterality: Right foot COMPARISON: None FINDINGS: Bones: No fracture is seen. Joints: Degenerative changes at the 1st metatarsophalangeal joint. Soft tissues: No significant soft tissue swelling. Other: RAD/Foot min 3 Views IMPRESSION: Degenerative changes at the 1st metatarsophalangeal joint. Reading Location: [facility]
== END | disposition home or self-care (01) ==
LOC: MTRAD 14:37
PROVIDERS: PCP Family Medicine; Referring Provider Physician Assistant; Visit Provider Physician Assistant
DX: M79.671 Pain in right foot (principal)
CPT/HCPCS: 73630

== ENCOUNTER → 2025-03-08 | Outpatient (CLI) | payer MEDICARE, SELFPAY ==
--- NOTE | 2025-03-08 14:26 | BD_ITS ---
PROCEDURE: DEXA BONE DENSITY STUDY 03/08/2025 REASON FOR EXAM: F, age 74 y/o . Postmenopausal. TECHNIQUE: DEXA BONE DENSITY STUDY COMPARISON: Prior study dated February 04, 2023. FINDINGS: BMD and T-SCORES Lumbar spine: 0.948 g/cm2, T-score -0.6 Levels: L1 through L4 Change from prior: Improvement of 0.6%. Left femoral neck: 0.748 g/cm2, T-score -0.9 Femoral neck comparison data not recommended for monitoring change. Left total hip: 0.838 g/cm2, T-score -0.8 Change from prior: Loss of 4.7%. Right femoral neck: 0.808 g/cm2, T-score -0.4 Femoral neck comparison data not recommended for monitoring change. Right total hip: 0.828 g/cm2, T-score -0.9 Change from prior: Improvement of 0.2%. The World Health Organization has defined the following categories based on bone density: Normal bone density: T-score equal to or greater than -1.0 Osteopenia: T-score between -1.0 and -2.5 Osteoporosis: T-score equal to or less than -2.5 FRAX (or Comparable) Fracture Risk Assessment: 10 Year Probability of Fracture: Major Osteoporotic Fracture: 17% Hip Fracture: 2.5% (Note: FRAX is not to be reported in setting of normal range bone density, osteoporosis on DEXA, known history of osteoporosis, prior osteoporotic hip or vertebral fracture, or for any patient undergoing pharmacological treatment for bone loss.) The National Osteoporosis Foundation (NOF) recommends pharmacological treatment for patients with a FRAX 10-year risk of 3% or higher for a hip fracture, or 20% or higher for a major osteoporotic fracture, to prevent osteoporosis and reduce fracture risk. The patient does not meet the pharmacological treatment recommendations for prevention of osteoporosis. BD/Dexa Bone Density Study IMPRESSION: NORMAL T-SCORES. Recommend follow-up as clinically warranted. Reading Location: [id number]
--- NOTE | 2025-03-08 14:26 | BI_ITS ---
EXAM: SCRN MAMM (CAD)W/ARSEN BILAT DATE: 03/08/2025 CLINICAL HISTORY: F, Age 74 y/o , POST MENOPAUSE No family history. History of prior left ultrasound-guided breast biopsy. TECHNIQUE: SCRN MAMM (CAD)W/ARSEN BILAT COMPARISON: Prior exam(s) dated February 16, 2024.. FINDINGS: TISSUE DENSITY: There are scattered areas of fibroglandular density. Bilateral Breast Mammographic Findings: No significant masses, calcifications or other abnormalities are identified. A tissue clip marker is once again seen in the anterior upper central portion of the left breast. No suspicious masses, areas of developing architectural distortion, or suspicious calcifications. There has been no significant interval change. BI/SCRN MAMM (CAD)W/ARSEN BILAT IMPRESSION: Stable examination. OVERALL FINAL ASSESSMENT BI-RADS 2: BENIGN RECOMMENDATION: Routine annual follow-up in 1 Year A letter with findings and recommendations will be mailed to the patient. Reading Location: [facility]
== END | disposition home or self-care (01) ==
LOC: OPBD 14:25
PROVIDERS: PCP Family Medicine
DX: Z13.820 Encounter for screening for osteoporosis (principal); Z78.0 Asymptomatic menopausal state; Z12.31 Encounter for screening mammogram for malignant neoplasm of breast
CPT/HCPCS: 77063; 77067; 77080